=== PATIENT | female | born 1965 | race Caucasian/White ===

== ENCOUNTER 2023-04-21 08:13 | Emergency (ER) | payer BC, SELFPAY ==
[2023-04-21 08:30] VITALS: BP 140/69; PULSE 103; RESP 22; TEMP 37.8; O2SAT 95; BMI 29.6
[2023-04-21 08:48] LABS: UTC Influenza A Antigen Negative (Negative); UTC Strep Screen (Rapid) Positive (Negative)
[2023-04-21 08:49] LABS: UTC Influenza B Antigen Negative (Negative)
--- NOTE | 2023-04-21 08:49 | ED_ITS ---
Discharge Plan Disposition Patient Disposition: Home, Self-Care Condition: Good Prescriptions Prescriptions: New fluconazole 150 mg tablet 150 mg PO ONCE Qty: 1 5RF amoxicillin [amoxicillin] 875 mg tablet 875 mg PO Q12H Qty: 20 0RF benzonatate [benzonatate] 100 mg capsule 100 mg PO TIDP PRN (Reason: Cough) Qty: 30 0RF prednisone 10 mg tablet 10 mg PO BID 5 Days Qty: 10 0RF No Action levothyroxine 50 mcg tablet 50 mcg PO DAILY Patient Comments: TAKE 1 TABLET BY MOUTH ONCE DAILY pantoprazole [Protonix] 40 mg Tablet,Delayed Release (Dr/Ec) 40 mg PO DAILY aspirin 81 mg Capsule 81 mg PO DAILY Referrals Follow up/Referrals: Jamal Mercado MD [Primary Care Provider] - See instructions Activity Restrictions/Add. Instructions Additional Instructions/Restrictions: Drink plenty of fluids. Take tylenol or ibuprofen for pain or fever. Take the medications as directed. Follow up with your regular doctor. GO TO THE ER FOR ANY WORSENING SYMPTOMS Clinical Impressions Clinical Impression: Strep throat Stand Alone Forms Stand Alone Forms: Work/School Release Instructions Patient Instructions: Strep Throat, DI for Strep Throat Discharge ED Provider: Tera Shields [facility] General Stated complaint: Cough, fever, aching, headache Time Seen by Provider: 04/21/23 09:07 History of Present Illness Provider Complaint: She states that for the past 4 days she has had worsening sore throat, chills, and malaise. Related Data Home Medications Medication Instructions Recorded Confirmed aspirin 81 mg capsule 81 mg PO DAILY 04/21/23 04/21/23 levothyroxine 50 mcg tablet 50 mcg PO DAILY 04/21/23 04/21/23 pantoprazole 40 mg tablet,delayed 40 mg PO DAILY 04/21/23 04/21/23 release (Protonix) Previous Rx's Medication Instructions Recorded amoxicillin 875 mg tablet 875 mg PO Q12H #20 tabs 04/21/23 benzonatate 100 mg capsule 100 mg PO TIDP PRN Cough #30 caps 04/21/23 fluconazole 150 mg tablet 150 mg PO ONCE 1 dose #1 tab 04/21/23 prednisone 10 mg tablet 10 mg PO BID 5 days #10 tabs 04/21/23 Allergies Allergy/AdvReac Type Severity Reaction Status Date / Time No Known Allergies Allergy Verified 04/21/23 08:57 [facility] Disclaimer: The information contained in this section may have been updated after the gonzalez ent was seen, as this information can be updated by other users. Medical History (Updated 04/21/23 @ 09:01 by Tera Shields APRN) No significant past medical history Social History Smoking Status: Never smoker alcohol intake: never current occupational status: employed Travel in the last 8 weeks: None ROS Obtained: Yes All systems reviewed & no additional complaints except as documented Constitutional Constitutional: Reports chills and Reports fever(s) Eyes Eyes: Denies eye discharge ENT Ears, Nose, Mouth, and Throat: Reports as per HPI Cardiovascular Cardiovascular: Denies chest pain Respiratory Respiratory: Denies chest congestion and Reports cough Gastrointestinal Gastrointestingal: Reports nausea; Denies abdominal pain, constipation, cramping, diarrhea or vomiting Musculoskeletal Musculoskeletal: Denies arthralgias Integumentary/Breasts Skin/Breast: Denies rash Neurologic Neurologic: Denies paresthesias Physical Exam General General appearance: alert and in no apparent distress Head Head exam: atraumatic, normocephalic and normal inspection Eye Eye exam: Present normal appearance, PERRL and EOMI ENT ENT exam: Present mucous membranes moist and normal external ear exam Expanded ENT Exam TM/Canal exam: Bilateral TM: erythema and bulging Nose exam: Absent sinus tenderness Mouth exam: Present normal external inspection; Absent drooling Teeth exam: Present normal inspection Throat exam: Present tonsillar erythema, tonsillomegaly and tonsillar exudate Neck Neck exam: Present normal inspection, full ROM and trachea midline; Absent tenderness, meningismus or lymphadenopathy Chest Chest inspection: Present normal inspection and symmetric chest wall rise; Absent tenderness Respiratory Respiratory exam: Present normal lung sounds bilaterally; Absent respiratory distress, wheezes or stridor Cardiovascular Cardiovascular exam: Present regular rate and normal rhythm; Absent systolic murmur or diastolic murmur Abdominal Exam Abdominal exam: Present soft and normal bowel sounds; Absent distention, tenderness, guarding, rebound or rigidity Extremities Exam Extremities exam: Present normal inspection and normal capillary refill; Absent calf tenderness Back Exam Back exam: Present normal inspection and full ROM; Absent tenderness, CVA tenderness (R) or CVA tenderness (L) Neurological Exam Neurological exam: Present alert, oriented X3 and CN II-XII intact Psychiatric Psychiatric exam: Present normal affect and normal mood Skin Skin exam: Present warm, dry, intact and normal color Medical Decision Making Medical Records Medical records reviewed: No I reviewed the patient's medical records. Kulwinder Inquiry Pt receiving controlled substance: No Lab Data Lab results reviewed: Yes I reviewed the patient's lab results. Lab Results 04/21/23 08:38: Influenza Type A Ag Negative, Influenza Type B Ag Negative, Strep Scn Rapid Clinic Positive A
[2023-04-21 09:05] VITALS: BP 140/69; PULSE 103; RESP 22; TEMP 37.8; O2SAT 95
== END 2023-04-21 09:07 | disposition home or self-care (01) ==
PROVIDERS: Emergency Provider Nurse Practitioner Family; PCP Internal Medicine Adolescent Medicine
DX: J02.0 Streptococcal pharyngitis (principal); R07.0 Pain in throat; R51.9 Headache, unspecified; R50.9 Fever, unspecified; R05.9 Cough, unspecified; R53.81 Other malaise
CPT/HCPCS: 87635; 87804; 87880; 99204; 99212; G0463

== ENCOUNTER 2023-08-31 10:25 | Emergency (ER) | payer BC, SELFPAY ==
--- OUTSIDE RECORDS SUMMARY | 2023-08-31 10:29 | XMS_ITS ---
Care Plan - [facility] Created on: August 31, 2023 Mariaelena Rowland : 1965 Sex: Female Author Name Unknown Address [address] [place] [address] [place] [address] Phone Organization [facility] Address [address] [place] [address] [place] [address] Phone Care Team Providers Care Taping Foreman Name Role Phone SIERRA STOCKTON, LEILA Unavailable [phone] Iftikhar Bowie MD Unavailable [phone]
--- OUTSIDE RECORDS SUMMARY | 2023-08-31 10:29 | XMS_ITS ---
Author Name Unknown Address [address] [place] [address] [place] [address] Phone Organization [facility] Address [address] [place] [address] Phone Care Team Providers Care Dock Boss Name Role Phone LEILA ESQUIVEL MD Unavailable [phone] Iftikhar Bowie MD Unavailable [phone] Reason for Referral Date Encounter Description Provider Reason for Referral 03/22/22 Post Op Iftikhar Bowie MD Referral To Physician 02/15/22 Post Op Iftikhar Bowie MD Referral To Physician 12/07/21 SECOND OPINION Iftikhar Bowie MD Referral T o Physician Problems Includes: Active, inactive, and resolved Problems All Visits Onset Date Resolved Date Provider Condition S tatus History of Joint Pain in the Left Knee 02/15/2022 Iftikhar Bowie MD Active Last Documented On 2 9:49AM ; [facility] Plan of Treatment Instructions to patient Lose weight Last Documented On 3 8:53AM ; [facility] Lose weight Last Documented On 3 8:50AM ; [facility] Lose weight Last Documented On 3 9:42AM ; [facility] Lose weight Last Documented On 2 9:56AM ; [facility] Lose weight Last Documented On 2 9:49AM ; [facility] Lose weight Last Documented On 2 9:39AM ; [facility] Assessments Includes: Assessments for all patient encounters No Assessments Recorded Instructions Includes: Instructions for all patient encounters Instructions to patient Lose weight Last Documented On 3 8:53AM ; [facility] Lose weight Last Documented On 3 8:50AM ; [facility] Lose weight Last Documented On 3 9:42AM ; [facility] Lose weight Last Documented On 2 9:56AM ; [facility] Lose weight Last Documented On 2 9:49AM ; [facility] Lose weight Last Documented On 2 9:39AM ; [facility] Medical Equipment - Implanted Devices Includes: Current and historical Devices No Medical Equipment Recorded Medications Includes: Current and historical Medications Current Medications (continue as prescribed) Pantoprazole Sodium 40 MG Or al Tablet Delayed Release 04/26/2022 Provider: LEILA ESQUIVEL MD Diagnosis: Last Documented On 3 8:50AM By Alexus Evans ; [facility] Synthroid 50 MCG Oral Tablet 04/26/2022 Provider: LEILA ESQUIVEL MD Diagnosis: Last Documented On 3 8:50AM By Alexus Evans ; [facility] Amoxicillin 875 MG Oral Tablet 04/22/2022 Provider: Carol Michael APRN Diagnosis: Last Documented On 3 8:50AM By Alexus Evans ; [facility] Fluconazole 150 MG Oral Tablet 04/22/2022 Provider: Carol Michael APRN Diagnosis: Last Documented On 3 8:50AM By Alexus Evans ; [facility] Levothyroxine Sodium 50 MCG Oral Tablet 04/20/2022 Dewayne sosa: LEILA ESQUIVEL MD Diagnosis: Last Documented On 3 8:50AM By Alexus Evans ; [facility] Pantoprazole Sodium 40 MG Or al Tablet Delayed Release 04/09/2022 Provider: LEILA ESQUIVEL MD Diagnosis: Last Documented On 3 8:50AM By Alexus Evans ; [facility] Past Medications on file Aspirin Adult Low Strength 8 1 MG Oral Tablet Delayed Release 02/01/2022 - 03/18/2022 Provider: Iftikhar Bowie MD Diagnosis: twice a day Last Documented On 2 9:11AM By Maricarmen Rosario ; [facility] Ondansetron HCl 4 MG Oral Tablet 02/01/2022 - 02/16/20 Provider: Iftikhar Bowie MD Diagnosis: 1-2 p o q 6-8h as needed for nausea Last Documented On 2 9:11AM By Maricarmen Rosario ; [facility] oxyCODONE HCl 5 MG Oral Tablet 02/01/2022 - 02/05/2022 Provider: Iftikhar Bowie MD Diagnosis: 1 po q 4h 1 tablet by mouth every [address] op pain Last Documented On 2 9:11AM By Iftikhar Bowie ; [facility] Ultram 50 MG Oral Tablet 02/01/2022 - 02/11/2022 Provi anthony: Iftikhar Bowie MD Diagnosis: 1-2 po q 4-6h PRN for breakthrough post op pain Last Documented On 2 9:11AM By Iftikhar Bowie ; [facility] Medications Administered Includes: Administered Medications in patient's chart No Administered Medications Recorded Results Includes: Results from 08/30/2022 through 08/31/2023 No Results Recorded For Specified Dates History of Present Illness History of Present Illness not supported for this document type No History of Present Illness Recorded Social History Description Last Updated No caffeine use 08/09/2022 Last Documented On 3 1:11PM ; [facility] No recent change in diet 08/09/2022 Last Documented On 3 1:11PM ; [facility] Not a current smoker. 08/09/2022 Last Documented On 3 1:11PM ; [facility] Not exercising regularly 08/09/2022 Last Documented On 3 1:11PM ; [facility] Not using alcohol 08/09/2022 Last Documented On 3 1:11PM ; [facility] Not using drugs 08/09/2022 Last Documented On 3 1:11PM ; [facility] Never drank alcohol 12/07/2021 Last Documented On 2 2:35PM ; [facility] Never smoked 12/07/2021 Last Documented On 2 2:35PM ; [facility] Never used drugs 12/07/2021 Last Documented On 2 2:35PM ; [facility] 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 Last Documented On 2 2:35PM ; [facility] Tobacco non-user 12/07/2021 Last Documented On 2 2:35PM ; [facility] Smoking Status Unknown Procedures and Surgical History Surgical History Last Updated History of Past Surgical History: 2021 Last Documented On 2 2:35PM ; [facility] Medical History Includes: Medical History in patient's chart Description Last Updated Past medical and surgical history non-co ntributory 08/09/2022 Last Documented On 3 1:11PM ; [facility] History of Heartburn / Acid Reflux 12/07 Last Documented On 2 2:35PM ; [facility] Family History Includes: Family History in patient's chart Description Last Updated Maternal grandfather's history of family history of cancer 12/07/2021 Last Documented On 2 2:35PM ; [facility] Maternal grandmother's history of family history of heart disease 12/07/2021 Last Documented On 2 2:35PM ; [facility] Maternal grandmother's history of system ic hypertension 12/07/2021 Last Documented On 2 2:35PM ; [facility] Maternal history of osteoporosis 022 Last Documented On 2 2:35PM ; [facility] Paternal history of family history of ca ncer 12/07/2021 Last Documented On 2 2:35PM ; [facility] Paternal history of systemic hypertensio n 12/07/2021 Last Documented On 2 2:35PM ; [facility] Review of Systems Review of Systems not supported for this document type No Review of Systems Recorded Mental Status Description No anxiety Functional Status No Functional Status Recorded Physical Exam Physical Exam not supported for this document type No Physical Exam Recorded Allergies Includes: Active, inactive, and resolved Allergies No Known Allergies Insurance Includes: Active Insurance Policies Plan Name Member ID Group # Subscriber Relationship Effect surinder Dates 1 - [facility] [id number] DESOUZA 04/10/2021 - Unknown Clinical Notes Includes: Signed Clinical Notes starting from 03/24/2022 No Clinical Notes Recorded
--- OUTSIDE RECORDS SUMMARY | 2023-08-31 10:30 | XMS_ITS | Clinical Summary ---
Author Name Unknown Address [address] [place] [address] [place] [address] Phone Organization [facility] Address [address] [place] [address] Phone Care Team Providers Care Sprue Knocker Name Role Phone LEILA ESQUIVEL MD Unavailable [phone] Jamir STOCKTON, Iftikhar Unavailable [phone] Reason for Visit and Chief Complaint The Chief Complaint is: lt knee pain Problems Includes: Problems addressed during this encounter and other active Problems All Visits Onset Date Resolved Date Provider Condition S tatus History of Joint Pain in the Left Knee 02/15/2022 Iftikhar Bowie MD Active Last Documented On 2 9:49AM ; [facility] Plan of Treatment Mariaelena is doing very well following a prior steroid injection. She can continue to work as tolerated with no formal restrictions. We will follow up with her on an as needed basis. She knows to contact our office if her symptoms return or worsen. - Last Documented On 08/09/2022 1:11PM ; [facility] Instructions to patient Lose weight Last Documented On 3 8:53AM ; [facility] Assessments Includes: Assessments from this encounter No Assessments Recorded Instructions Includes: Instructions from this encounter Instructions to patient Lose weight Last Documented On 3 8:53AM ; [facility] Medical Equipment - Implanted Devices Includes: Current Devices No Medical Equipment Recorded Medications Includes: Medications discussed during this encounter and other current Medications Current Medications (continue as prescribed) Pantoprazole Sodium 40 MG Or al Tablet Delayed Release 04/26/2022 Provider: LEILA ESQUIVEL MD Diagnosis: Last Documented On 3 8:50AM By Alexus [facility] Synthroid 50 MCG Oral Tablet 04/26/2022 Provider: LEILA ESQUIVEL MD Diagnosis: Last Documented On 3 8:50AM By Alexus Evans ; [facility] Amoxicillin 875 MG Oral Tablet 04/22/2022 Provider: Carol Michael APRN Diagnosis: Last Documented On 3 8:50AM By Alexus Evans ; [facility] Fluconazole 150 MG Oral Tablet 04/22/2022 Provider: Carol Michael APRN Diagnosis: Last Documented On 3 8:50AM By Alexus Evans ; [facility] Levothyroxine Sodium 50 MCG Oral Tablet 04/20/2022 Dewayne alcocerder: LEILA ESQUIVEL MD Diagnosis: Last Documented On 3 8:50AM By Alexus Evans ; [facility] Pantoprazole Sodium 40 MG Or al Tablet Delayed Release 04/09/2022 Provider: LEILA ESQUIVEL MD Diagnosis: Last Documented On 3 8:50AM By Alexus Evans ; [facility] Past Medications on file Aspirin Adult Low Strength 8 1 MG Oral Tablet Delayed Release 02/01/2022 - 03/18/2022 Provider: Iftikhar Bowie MD Diagnosis: twice a day Last Documented On 2 9:11AM By Maricarmen Rosario ; [facility] Ondansetron HCl 4 MG Oral Tablet 02/01/2022 - 02/16/20 Provider: Iftikhar Bowie MD Diagnosis: 1-2 p o q 6-8h as needed for nausea Last Documented On 2 9:11AM By Maricarmen Rosario ; [facility] oxyCODONE HCl 5 MG Oral Tablet 02/01/2022 - 02/05/2022 Provider: Iftikhar Bowie MD Diagnosis: 1 po q 4h 1 tablet by mouth every [address] op pain Last Documented On 2 9:11AM By Iftikhar Bowie ; [facility] Ultram 50 MG Oral Tablet 02/01/2022 - 02/11/2022 Provi anthony: Iftikhar Bowie MD Diagnosis: 1-2 po q 4-6h PRN for breakthrough post op pain Last Documented On 2 9:11AM By Iftikhar Bowie ; [facility] Medications Administered Includes: Administered Medications from this encounter No Administered Medications Recorded Vital Signs Includes: Vital Signs from this encounter Vital Name 08/02/2022 08:53A Height (in) 65 Weight (lb) 165 Body Mass Index 27.5 Body Surface Area 1.8 Note: mg Last Documented: On 08/02/2022 8:53AM ; [facility] Results Includes: Results discussed during this encounter No Results Recorded For Specified Dates History of Present Illness Includes: History of Present Illness from this encounter HPI Mariaelena Dia is a 56 year old female. - Allergy list reviewed - Problem list reviewed - Medication list reviewed 56-year-old female returns in follow up of her left knee. She reports that her pain has nearly resolved following a prior steroid injection. She is able to function well while working without difficulty. Social History Description Last Updated No caffeine use 08/09/2022 Last Documented On 3 1:11PM ; [facility] No recent change in diet 08/09/2022 Last Documented On 3 1:11PM ; [facility] Not a current smoker. 08/09/2022 Last Documented On 3 1:11PM ; [facility] Not exercising regularly 08/09/2022 Last Documented On 3 1:11PM ; [facility] Not using alcohol 08/09/2022 Last Documented On 3 1:11PM ; [facility] Not using drugs 08/09/2022 Last Documented On 3 1:11PM ; [facility] Never drank alcohol 12/07/2021 Last Documented On 3 8:53AM ; [facility] Never smoked 12/07/2021 Last Documented On 3 8:53AM ; [facility] Never used drugs 12/07/2021 Last Documented On 3 8:53AM ; [facility] 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 Last Documented On 3 8:53AM ; [facility] Tobacco non-user 12/07/2021 Last Documented On 3 8:53AM ; [facility] Smoking Status Unknown Procedures and Surgical History Includes: Procedures from this encounter Procedures Code Diagnosis Performing Provider Service L ocation Service Date use of tobacco assessment performed 1000F Last Documented On 3 8:53AM ; [facility] Surgical History Last Updated History of Past Surgical History: 2021 Last Documented On 3 8:53AM ; [facility] Medical History Includes: Medical History addressed during this encounter Description Last Updated Past medical and surgical history non-co ntributory 08/09/2022 Last Documented On 3 1:11PM ; [facility] History of Heartburn / Acid Reflux 12/07 Last Documented On 3 8:53AM ; [facility] Family History Includes: Family History addressed during this encounter Description Last Updated Maternal grandfather's history of family history of cancer 12/07/2021 Last Documented On 3 8:53AM ; [facility] Maternal grandmother's history of family history of heart disease 12/07/2021 Last Documented On 3 8:53AM ; [facility] Maternal grandmother's history of system ic hypertension 12/07/2021 Last Documented On 3 8:53AM ; [facility] Maternal history of osteoporosis 022 Last Documented On 3 8:53AM ; [facility] Paternal history of family history of ca ncer 12/07/2021 Last Documented On 3 8:53AM ; [facility] Paternal history of systemic hypertensio n 12/07/2021 Last Documented On 3 8:53AM ; [facility] Review of Systems Includes: Review of Systems from this encounter Systemic: No symptoms, not feeling tired, no recent weight loss, and no recent weight gain. Head: No headache and no sinus pain. Eyes: No vision problems, no Cataracts, no Glasses/Contacts, and no Glaucoma. Otolaryngeal: No hearing loss and no tinnitus. Cardiovascular: No chest pain or discomfort, no palpitations, no Hypertension, and no High Cholesterol. Pulmonary: No daytime asthma symptoms and no chronic cough. No wheezing. Gastrointestinal: No heartburn and no abdominal pain. No Indigestion, no Acid Reflux, no Peptic Ulcer, no GI Stomach Bleed, and no Ulcers. Endocrine: No hot flashes, no muscle weakness, no Diabetes, no Hypothyroid, and no Hyperthyroid. Hematologic: No easy bleeding, no tendency for easy bruising, and no Anemia. Musculoskeletal: Musculoskeletal symptoms Pain in my feet. No Arthritis and no lower back pain. No soft tissue swelling and no localized joint pain. Neurological: No dizziness, no convulsions, and no numbness. Psychological: No anxiety, no emotional lability, no depression, and no insomnia. Not crying for no reason. Skin: No dry skin. No Ulcers, no Scars, and no rash. Allergic and Immunologic: No complaint of seasonal allergic reaction. Mental Status Includes: Mental Status from this encounter Description No anxiety Functional Status Includes: Functional Status from this encounter No Functional Status Recorded Physical Exam Includes: Physical Exam from this encounter Allergies Includes: Active Allergies No Known Allergies Encounters Encounter Provider Location Date Check-In Time Check- Out Time Diagnosis Follow Up Iftikhar oBwie MD [facility] 3 8:50AM 9:19AM Insurance Includes: Active Insurance Policies Plan Name Member ID Group # Subscriber Relationship Effect surinder Dates 1 - [facility] [id number] DESOUZA 04/10/2021 - Unknown Clinical Notes Includes: Clinical Notes from this encounter * Progress note Date Encounter Last Documented by 08/02/2022 Follow Up Last documented on 08/09/2022; 1:11 PM, Iftikhar Bowie MD; [facility] Active Problems & Conditions - History of Joint Pain in the Left Knee Chief Complaint The Chief Complaint is: Lt knee pain. Referred Here Referred by. History of Present Illness Mariaelena Dia is a 56 year old female. - Allergy list reviewed - Problem list reviewed - Medication list reviewed 56-year-old female returns in follow up of her left knee. She reports that her pain has nearly resolved following a prior steroid injection. She is able to function well while working without difficulty. Current Medication - Amoxicillin 875 MG Oral Tablet 10 days, 0 refills - Fluconazole 150 MG Oral Tablet 3 days, 0 refills - Levothyroxine Sodium 50 MCG Oral Tablet 90 days, 0 refills - Pantoprazole Sodium 40 MG Oral Tablet Delayed Release 90 days, 0 refills - Pantoprazole Sodium 40 MG Oral Tablet Delayed Release 30 days, 0 refills - Synthroid 50 MCG Oral Tablet 90 days, 0 refills Past Medical/Surgical History Diagnoses: Heartburn / Acid Reflux Past medical and surgical history non-contributory. Surgical: - Past Surgical History: Social History Not a current smoker. Current diet: No recent change in diet. Caffeine use: No caffeine use. Tobacco use: Tobacco non-user. Never smoked. Alcohol: Not using alcohol. Never drank alcohol. Drug Use: Not using drugs. Never used drugs. Habits: Not exercising regularly. 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 Allergies - No Known Allergies Family History Paternal: Cancer Systemic hypertension Maternal: Osteoporosis Maternal grandfather's: Cancer Maternal grandmother's: Heart disease Systemic hypertension Review Of Systems Systemic: No symptoms, not feeling tired, no recent weight loss, and no recent weight gain. Head: No headache and no sinus pain. Eyes: No vision problems, no Cataracts, no Glasses/Contacts, and no Glaucoma. Otolaryngeal: No hearing loss and no tinnitus. Cardiovascular: No chest pain or discomfort, no palpitations, no Hypertension, and no High Cholesterol. Pulmonary: No daytime asthma symptoms and no chronic cough. No wheezing. Gastrointestinal: No heartburn and no abdominal pain. No Indigestion, no Acid Reflux, no Peptic Ulcer, no GI Stomach Bleed, and no Ulcers. Endocrine: No hot flashes, no muscle weakness, no Diabetes, no Hypothyroid, and no Hyperthyroid. Hematologic: No easy bleeding, no tendency for easy bruising, and no Anemia. Musculoskeletal: Musculoskeletal symptoms Pain in my feet. No Arthritis and no lower back pain. No soft tissue swelling and no localized joint pain. Neurological: No dizziness, no convulsions, and no numbness. Psychological: No anxiety, no emotional lability, no depression, and no insomnia. Not crying for no reason. Skin: No dry skin. No Ulcers, no Scars, and no rash. Allergic and Immunologic: No complaint of seasonal allergic reaction. Physical Findings - Vitals taken 08/02/2022 08:53 am mg Height 65 in 48 - 78 Weight 165 lbs 98 - 183 Body Mass Index 27.5 kg/m2 Body Surface Area 1.8 m2 Standard Measurements: - Patient was overweight. LEFT KNEE EXAM: Full range of motion No significant pain Normal stability Resolved tenderness over the pes bursa Counseling/Education - Lose weight Plan Mariaelena is doing very well following a prior steroid injection. She can continue to work as tolerated with no formal restrictions. We will follow up with her on an as needed basis. She knows to contact our office if her symptoms return or worsen. Notes Transcribed by Morales Ch, acting as a scribe for Dr. Bowie. This dictation was done with voice recognition software and may contain errors and omissions. Practice Management Use of tobacco assessment performed. Care Team - LEILA ESQUIVEL MD - STAVE SAW OPERATOR
--- OUTSIDE RECORDS SUMMARY | 2023-08-31 10:30 | XMS_ITS | Clinical Summary ---
Author Name Unknown Address [address] [place] [address] [place] [address] Phone Organization [facility] Address [address] [place] [address] Phone Care Team Providers Care County Records Management Officer Name Role Phone LEILA ESQUIVEL MD Unavailable [phone] Iftikhar Bowie MD Unavailable [phone] Reason for Visit and Chief Complaint [Patient Encounter] Problems Includes: Problems addressed during this encounter and other active Problems All Visits Onset Date Resolved Date Provider Condition S tatus History of Joint Pain in the Left Knee 02/15/2022 Iftikhar Bowie MD Active Last Documented On 2 9:49AM ; [facility] Plan of Treatment No Plan of Treatment Recorded Assessments Includes: Assessments from this encounter No Assessments Recorded Medical Equipment - Implanted Devices Includes: Current Devices No Medical Equipment Recorded Medications Includes: Medications discussed during this encounter and other current Medications Current Medications (continue as prescribed) Pantoprazole Sodium 40 MG Or al Tablet Delayed Release 04/26/2022 Provider: LEILA ESQUIVEL MD Diagnosis: Last Documented On 3 8:50AM By Alexus [facility], [facility] Synthroid 50 MCG Oral Tablet 04/26/2022 Provider: LEILA ESQUIVEL MD Diagnosis: Last Documented On 3 8:50AM By Alexus [facility], [facility] Amoxicillin 875 MG Oral Tablet 04/22/2022 Provider: Carol Michael APRN Diagnosis: Last Documented On 3 8:50AM By Alexus [facility], [facility] Fluconazole 150 MG Oral Tablet 04/22/2022 Provider: Carol Michael APRN Diagnosis: Last Documented On 3 8:50AM By Alexus Evans ; [facility] Levothyroxine Sodium 50 MCG Oral Tablet 04/20/2022 Dewayne sosa: LEILA ESQUIVEL MD Diagnosis: Last Documented On 3 8:50AM By Alexus Evans ; [facility] Pantoprazole Sodium 40 MG Or al Tablet Delayed Release 04/09/2022 Provider: LEILA ESQUIVEL MD Diagnosis: Last Documented On 3 8:50AM By Alexus Evans ; [facility], [facility] Medications Administered Includes: Administered Medications from this encounter No Administered Medications Recorded Results Includes: Results discussed during this encounter No Results Recorded For Specified Dates History of Present Illness Includes: History of Present Illness from this encounter No History of Present Illness Recorded Social History No Social History Recorded - Smoking Status Unknown Medical History Includes: Medical History addressed during this encounter No Medical History Recorded Family History Includes: Family History addressed during this encounter No Family History Recorded Review of Systems Includes: Review of Systems from this encounter No Review of Systems Recorded Mental Status Includes: Mental Status from this encounter No Mental Status Recorded Functional Status Includes: Functional Status from this encounter No Functional Status Recorded Physical Exam Includes: Physical Exam from this encounter No Physical Exam Recorded Allergies Includes: Active Allergies No Known Allergies Encounters Encounter Provider Location Date Check-In Time Check-Out Time Diagnosis [Patient Encounter] Iftikhar Bowie MD 04/21/2022 3:23PM 11:59PM Insurance Includes: Active Insurance Policies Plan Name Member ID Group # Subscriber Relationship Effect surinder Dates 1 - [facility] [id number] DEOSUZA 04/10/2021 - Unknown Clinical Notes Includes: Clinical Notes from this encounter No Clinical Notes Recorded
--- OUTSIDE RECORDS SUMMARY | 2023-08-31 10:30 | XMS_ITS | Clinical Summary ---
Author Name Unknown Address [address] [place] [address] [place] [address] Phone Organization [facility] Address [address] [place] [address] Phone Care Team Providers Care Divinity Teacher Name Role Phone LEILA ESQUIVEL MD Unavailable [phone] Iftikhar Bowie MD Unavailable [phone] Reason for Visit and Chief Complaint [Patient Encounter] Problems Includes: Problems addressed during this encounter and other active Problems All Visits Onset Date Resolved Date Provider Condition S tatus History of Joint Pain in the Left Knee 02/15/2022 Iftikhar Bowie MD Active Last Documented On 2 9:49AM ; [facility] Plan of Treatment No Plan of [...] Documented On 3 8:50AM By Alexus MARSS, [facility] Synthroid 50 MCG Oral Tablet 04/26/2022 Provider: LEILA ESQUIVEL MD Diagnosis: Last Documented On 3 8:50AM By Alexus MARSS, [facility] Amoxicillin 875 MG Oral Tablet 04/22/2022 Provider: Carol Michael APRN Diagnosis: Last Documented On 3 8:50AM By Alexus MARSS, [facility] Fluconazole 150 MG Oral Tablet 04/22/2022 Provider: Carol Michael APRN Diagnosis: Last Documented On 3 8:50AM By Alexus Evans ; [facility] Levothyroxine Sodium 50 MCG Oral Tablet 04/20/2022 Dewayne sosa: LEILA ESQUIVEL MD Diagnosis: Last Documented On 3 8:50AM By Alexus Evans ; [facility], [facility] Pantoprazole Sodium 40 MG Or al Tablet Delayed Release 04/09/2022 Provider: LEILA ESQUIVEL MD Diagnosis: Last Documented On 3 8:50AM By Alexus Evans ; [facility], [facility] Medications Administered Includes: Administered Medications from [...] Time Diagnosis [Patient Encounter] Iftikhar Bowie MD 04/14/2022 11:01AM 11:59PM Insurance Includes: Active Insurance Policies Plan Name Member ID Group # Subscriber Relationship Effect surinder Dates 1 - [facility] [id number] DESOUZA 04/10/2021 - Unknown Clinical Notes Includes: Clinical Notes from this encounter No Clinical Notes Recorded
--- OUTSIDE RECORDS SUMMARY | 2023-08-31 10:30 | XMS_ITS | Clinical Summary ---
Author Name Unknown Address [address] [place] [address] [place] [address] Phone Organization [facility] , [facility] Address [address] [place] [address] Phone Care Team Providers Care Geotechnical Department Manager Name Role Phone SIERRA STOCKTON, LEILA Unavailable [phone] Jamir STOCKTON, Iftikhar Unavailable [phone] Reason for Visit and Chief Complaint The Chief Complaint is: lt knee pain Problems Includes: Problems addressed during this encounter and other active Problems All Visits Onset Date Resolved Date Provider Condition S tatus History of Joint Pain in the Left Knee 02/15/2022 Iftikhar Bowie MD Active Last Documented On 2 9:49AM ; [facility], [facility] Plan of Treatment We discussed treatment options injection performed in the pes bursa 1 cc Celestone injected aseptically if she is not improving in 3 to 5 days then we will add some therapeutic laser treatments as well for total of 6-8 treatments to help with soft tissue inflammation we will contact her about that and see how she is doing and then otherwise see her back in 6 weeks continue work without restrictions as previous - Last Documented On 06/28/2022 9:02AM ; [facility], [facility] Instructions to patient Lose weight Last Documented On 3 8:50AM ; [facility], [facility] Assessments Includes: Assessments from this encounter Findings Pes bursitis left knee post meniscal root repair now 5 months postop - Last Documented On 06/28/2022 9:02AM ; [facility], [facility] Instructions Includes: Instructions from this encounter Instructions to patient Lose weight Last Documented On 3 8:50AM ; [facility], [facility] Medical Equipment - Implanted Devices Includes: Current Devices No Medical Equipment Recorded Medications Includes: Medications discussed during this encounter and other current Medications Current Medications (continue as prescribed) Pantoprazole Sodium 40 MG Or al Tablet Delayed Release 04/26/2022 Provider: LEILA ESQUIVEL MD Diagnosis: Last Documented On 3 8:50AM By Alexus Evans ; [facility], [facility] Synthroid 50 MCG Oral Tablet 04/26/2022 Provider: LEILA ESQUIVEL MD Diagnosis: Last Documented On 3 8:50AM By Alexus Evans ; [facility], [facility] Amoxicillin 875 MG Oral Tablet 04/22/2022 Provider: Carol Michael APRN Diagnosis: Last Documented On 3 8:50AM By Alexus Evans ; [facility], [facility] Fluconazole 150 MG Oral Tablet 04/22/2022 Provider: Carol Michael APRN Diagnosis: Last Documented On 3 8:50AM By Alexus Evans ; [facility], [facility] Levothyroxine Sodium 50 MCG Oral Tablet 04/20/2022 Dewayne alcocerder: LEILA ESQUIVEL MD Diagnosis: Last Documented On 3 8:50AM By Alexus Evans ; [facility], [facility] Pantoprazole Sodium 40 MG Or al Tablet Delayed Release 04/09/2022 Provider: LEILA ESQUIVEL MD Diagnosis: Last Documented On 3 8:50AM By Alexus Evans ; [facility], [facility] Past Medications on file Aspirin Adult Low Strength 8 1 MG Oral Tablet Delayed Release 02/01/2022 - 03/18/2022 Provider: Iftikhar Bowie MD Diagnosis: twice a day Last Documented On 2 9:11AM By Maricarmen Rosario ; [facility], [facility] Ondansetron HCl 4 MG Oral Tablet 02/01/2022 - 02/16/20 Provider: Iftikhar Bowie MD Diagnosis: 1-2 p o q 6-8h as needed for nausea Last Documented On 2 9:11AM By Maricarmen Rosario ; [facility], [facility] oxyCODONE HCl 5 MG Oral Tablet 02/01/2022 - 02/05/2022 Provider: Iftikhar Bowie MD Diagnosis: 1 po q 4h 1 tablet by mouth every [address] op pain Last Documented On 2 9:11AM By Iftikhar Bowie ; [facility] Ultram 50 MG Oral Tablet 02/01/2022 - 02/11/2022 Provi anthony: Iftikhar Bowie MD Diagnosis: 1-2 po q 4-6h PRN for breakthrough post op pain Last Documented On 2 9:11AM By Iftikhar Bowie ; [facility] Medications Administered Includes: Administered Medications from this encounter No Administered Medications Recorded Vital Signs Includes: Vital Signs from this encounter Vital Name 06/28/2022 08:50A Height (in) 65 Weight (lb) 165 Body Mass Index 27.5 Body Surface Area 1.8 Note: mg Last Documented: On 06/28/2022 8:50AM ; [facility] Results Includes: Results discussed during this encounter No Results Recorded For Specified Dates History of Present Illness Includes: History of Present Illness from this encounter ROBIN Dia is a 56 year old female. - Allergy list reviewed - Problem list reviewed - Medication list reviewed Follow-up left knee she is doing well overall function well at her job she still some soreness over the pes bursa this is in the same area where the tunnel was for the meniscal root repair and think she had low postop bursitis which is not improving with [id number] medications Social History Description Last Updated Never drank alcohol 12/07/2021 Last Documented On 3 8:50AM ; [facility] Never smoked 12/07/2021 Last Documented On 3 8:50AM ; [facility] Never used drugs 12/07/2021 Last Documented On 3 8:50AM ; [facility] 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 Last Documented On 3 8:50AM ; [facility], [facility] Tobacco non-user 12/07/2021 Last Documented On 3 8:50AM ; [facility] Smoking Status Unknown Procedures and Surgical History Includes: Procedures from this encounter Procedures Code Diagnosis Performing Provider Service L ocation Service Date use of tobacco assessment performed 1000F Last Documented On 3 8:50AM ; [facility] Surgical History Last Updated History of Past Surgical History: 2021 Last Documented On 3 8:50AM ; [facility] Medical History Includes: Medical History addressed during this encounter Description Last Updated History of Heartburn / Acid Reflux 12/07 Last Documented On 3 8:50AM ; [facility], [facility] Family History Includes: Family History addressed during this encounter Description Last Updated Maternal grandfather's history of family history of cancer 12/07/2021 Last Documented On 3 8:50AM ; [facility], [facility] Maternal grandmother's history of family history of heart disease 12/07/2021 Last Documented On 3 8:50AM ; [facility] Maternal grandmother's history of system ic hypertension 12/07/2021 Last Documented On 3 8:50AM ; [facility], [facility] Maternal history of osteoporosis 022 Last Documented On 3 8:50AM ; [facility], [facility] Paternal history of family history of ca ncer 12/07/2021 Last Documented On 3 8:50AM ; [facility], [facility] Paternal history of systemic hypertensio n 12/07/2021 Last Documented On 3 8:50AM ; [facility], [facility] Review of Systems Includes: Review of Systems from this encounter Systemic: No symptoms. Musculoskeletal: Musculoskeletal symptoms Pain in my feet. Mental Status Includes: Mental Status from this encounter No Mental Status Recorded Functional Status Includes: Functional Status from this encounter No Functional Status Recorded Physical Exam Includes: Physical Exam from this encounter Allergies Includes: Active Allergies No Known Allergies Encounters Encounter Provider Location Date Check-In Time Check- Out Time Diagnosis Follow Up Iftikhar Bowie MD [facility] 3 8:49AM 9:05AM Insurance Includes: Active Insurance Policies Plan Name Member ID Group # Subscriber Relationship Effect surinder Dates 1 - [facility] [id number] RACQUEL DIA 04/10/2021 - Unknown Clinical Notes Includes: Clinical Notes from this encounter * Progress note Date Encounter Last Documented by 06/28/2022 Follow Up Last documented on 06/28/2022; 9:02 AM, Iftikhar Bowie MD; [facility], [facility] Active Problems & Conditions - History of Joint Pain in the Left Knee Chief Complaint The Chief Complaint is: Lt knee pain. Referred Here Referred by. History of Present Illness Mariaelena Dia is a 56 year old female. - Allergy list reviewed - Problem list reviewed - Medication list reviewed Follow-up left knee she is doing well overall function well at her job she still some soreness over the pes bursa this is in the same area where the tunnel was for the meniscal root repair and think she had low postop bursitis which is not improving with [id number] medications Current Medication - Amoxicillin 875 MG Oral [...] Medical/Surgical History Diagnoses: Heartburn / Acid Reflux Surgical: - Past Surgical History: Social History Tobacco use: Tobacco non-user. Never smoked. Alcohol: Never drank alcohol. Drug Use: Never used drugs. 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 Allergies - No Known Allergies Family History Paternal: Cancer Systemic hypertension Maternal: Osteoporosis Maternal grandfather's: Cancer Maternal grandmother's: Heart disease Systemic hypertension Review Of Systems Systemic: No symptoms. Musculoskeletal: Musculoskeletal symptoms Pain in my feet. Physical Findings - Vitals taken 06/28/2022 08:50 am mg Height 65 in 48 - 78 Weight 165 lbs 98 - 183 Body Mass Index 27.5 kg/m2 Body Surface Area 1.8 m2 Left knee shows full motion normal stability no meniscal click is noted no effusion there is a tenderness over the pes bursa Assessment Pes bursitis left knee post meniscal root repair now 5 months postop Counseling/Education - Lose weight Plan We discussed treatment options injection performed in the pes bursa 1 cc Celestone injected aseptically if she is not improving in 3 to 5 days then we will add some therapeutic laser treatments as well for total of 6-8 treatments to help with soft tissue inflammation we will contact her about that and see how she is doing and then otherwise see her back in 6 weeks continue work without restrictions as previous Notes This dictation was done with voice recognition software and may contain errors and omissions. Practice Management Use of tobacco assessment performed. Care Team - LEILA ESQUIVEL MD - PUBLICATIONS WRITER
--- OUTSIDE RECORDS SUMMARY | 2023-08-31 10:30 | XMS_ITS | Clinical Summary ---
Author Name Unknown Address [address] [place] [address] [place] [address] Phone Organization [facility] , [facility] Address [address] [place] [address] Phone Care Team Providers Care Roller Man Name Role Phone LEILA ESQUIVEL MD Unavailable [phone] Jamir STOCKTON, Iftikhar Unavailable [phone] Reason for Visit and Chief Complaint The Chief Complaint is: lt knee pain Problems Includes: Problems addressed during this encounter and other active Problems All Visits Onset Date Resolved Date Provider Condition S tatus History of Joint Pain in the Left Knee 02/15/2022 Iftikhar Bowie MD Active Last Documented On 2 9:49AM ; [facility] Plan of Treatment Patient was seen by myself and Dr. Bowie. Derrick Rivers PA-C Patient will follow- up in 2 months. - Last Documented On 07/04/2023 11:35AM ; [facility] Instructions to patient Lose weight Last Documented On 3 9:42AM ; [facility] Assessments Includes: Assessments from this encounter Findings Left knee scope medial meniscus root repair February 01, 2022 - Last Documented On 07/04/2023 11:35AM ; [facility] Instructions Includes: Instructions from this encounter Instructions to patient Lose weight Last Documented On 3 9:42AM ; [facility] Medical Equipment - Implanted Devices Includes: Current Devices No Medical Equipment Recorded Medications Includes: Medications discussed during this encounter and other current Medications Current Medications (continue as prescribed) Pantoprazole Sodium 40 MG Or al Tablet Delayed Release 04/26/2022 Provider: LEILA ESQUIVEL MD Diagnosis: Last Documented On 3 8:50AM By Alexus Evans ; [facility], [facility] Synthroid 50 MCG Oral Tablet 04/26/2022 Provider: LEILA ESQUIVEL MD Diagnosis: Last Documented On 3 8:50AM By Alexus Evans ; [facility], [facility] Amoxicillin 875 MG Oral Tablet 04/22/2022 Provider: Carol Michael APRN Diagnosis: Last Documented On 3 8:50AM By Alexus Evans ; [facility], [facility] Fluconazole 150 MG Oral Tablet 04/22/2022 Provider: Carol Michael APRN Diagnosis: Last Documented On 3 8:50AM By Alexus Evans ; [facility], [facility] Levothyroxine Sodium 50 MCG Oral Tablet 04/20/2022 P carlynder: LEILA ESQUIVEL MD Diagnosis: Last Documented On 3 8:50AM By Alexus Evans ; [facility], [facility] Pantoprazole Sodium 40 MG Or al Tablet Delayed Release 04/09/2022 Provider: LEILA ESQUIVEL MD Diagnosis: Last Documented On 3 8:50AM By Alexus Evans ; [facility], [facility] Past Medications on file Aspirin Adult Low Strength 8 1 MG Oral Tablet Delayed Release 02/01/2022 - 03/18/2022 Provider: Iftikhar Bowie MD Diagnosis: twice a day Last Documented On 2 9:11AM By Maricarmen Rosario ; [facility], [facility] Ondansetron HCl 4 MG Oral Tablet 02/01/2022 - 02/16/20 Provider: Iftikhar Bowie MD Diagnosis: 1-2 p o q 6-8h as needed for nausea Last Documented On 2 9:11AM By Maricarmen Rosario ; [facility], [facility] oxyCODONE HCl 5 MG Oral Tablet 02/01/2022 - 02/05/2022 Provider: Iftikhar Bowie MD Diagnosis: 1 po q 4h 1 tablet by mouth every [address] op pain Last Documented On 2 9:11AM By Iftikhar Bowie ; [facility], [facility] Ultram 50 MG Oral Tablet 02/01/2022 - 02/11/2022 Provi anthony: Iftikhar Bowie MD Diagnosis: 1-2 po q 4-6h PRN for breakthrough post op pain Last Documented On 2 9:11AM By Iftikhar Bowie ; [facility] Medications Administered Includes: Administered Medications from this encounter No Administered Medications Recorded Vital Signs Includes: Vital Signs from this encounter Vital Name 05/03/2022 09:54A Blood Pressure Sitting (mmHg) 134/86 Pulse Rate-Sitting (bpm) 80 Height (in) 65 Weight (lb) 168 Body Mass Index 28 Body Surface Area 1.8 Last Documented: On 05/03/2022 9:54AM ; [facility], [facility] Results Includes: Results discussed during this encounter No Results Recorded For Specified Dates History of Present Illness Includes: History of Present Illness from this encounter HPI Mariaelena Dia is a 56 year old female. - Allergy list reviewed - Problem list reviewed - Medication list reviewed Follow-up on her left knee scope medial meniscus root repair from February 01, 2022. 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 Surgical History Last Updated History of Past Surgical History: 2021 Last Documented On 3 9:42AM ; [facility], [facility] Medical History Includes: Medical History addressed during this encounter Description Last Updated History of Heartburn / Acid Reflux 12/07 Last Documented On 3 9:42AM ; [facility], [facility] Family History Includes: Family History addressed during this encounter Description Last Updated Maternal grandfather's history of family history of cancer 12/07/2021 Last Documented On 3 9:42AM ; [facility] Maternal grandmother's history of family history of heart disease 12/07/2021 Last Documented On 3 9:42AM ; [facility], [facility] Maternal grandmother's history of system ic hypertension 12/07/2021 Last Documented On 3 9:42AM ; [facility] Maternal history of osteoporosis 022 Last Documented On 3 9:42AM ; [facility] Paternal history of family history of ca ncer 12/07/2021 Last Documented On 3 9:42AM ; [facility] Paternal history of systemic hypertensio n 12/07/2021 Last Documented On 3 9:42AM ; [facility], [facility] Review of Systems Includes: Review of [...] Check- Out Time Diagnosis [facility] 3 9:41AM 10:13AM Insurance Includes: Active Insurance Policies Plan Name Member ID Group # Subscriber Relationship Effect surinder Dates 1 - [employer] [place] [id number] DESOUZA 04/10/2021 - Unknown Clinical Notes Includes: Clinical Notes from this encounter * Progress note Date Encounter Last Documented by 05/03/2022 Follow Up Last documented on 07/04/2023; 11:35 AM, Iftikhar Bowie MD; [facility] Active Problems & Conditions - History of Joint Pain in the Left Knee Chief Complaint The Chief Complaint is: Lt knee pain. Referred Here Referred by. History of Present Illness Mariaelena Dia is a 56 year old female. - Allergy list reviewed - Problem list reviewed - Medication list reviewed Follow-up on her left knee scope medial meniscus root repair from February 01, 2022. 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 Allergies - No Known Allergies Family History Paternal: Cancer Systemic hypertension Maternal: Osteoporosis Maternal grandfather's: Cancer Maternal grandmother's: Heart disease Systemic hypertension Review Of Systems Systemic: No symptoms. Musculoskeletal: Musculoskeletal symptoms Pain in my feet. Physical Findings - Vitals taken 05/03/2022 09:54 am BP-Sitting 134/86 mmHg 100 - 120/56 - 80 Pulse Rate-Sitting 80 bpm 50 - 100 Height 65 in 48 - 78 Weight 168 lbs 98 - 183 Body Mass Index 28 kg/m2 Body Surface Area 1.8 m2 Standard Measurements: - Patient was overweight. No significant effusion today with left knee or incision sites were healed range of motion was 0-120 walks with a normal gait Assessment Left knee scope medial meniscus root repair February 01, 2022 Counseling/Education - Lose weight Plan Patient was seen by myself and Dr. Bowie. Derrick Rivers PA-C Patient will follow- up in 2 months. Notes This dictation was done with voice recognition software and may contain errors and omissions. Practice Management Use of tobacco assessment performed. Care Team - LEILA ESQUIVEL MD - PICK UP OPERATOR
--- NOTE | 2023-08-31 10:38 | EXP.UTC ---
Discharge Plan Disposition Patient Disposition: Home, Self-Care Condition: Good Prescriptions Prescriptions: New azithromycin [Zithromax] 250 mg tablet 250 mg PO UD DOSE PK Qty: 6 0RF Rx Instructions: Take two (2) tablets today, then one (1) tablet days #2 thru #5 benzonatate 100 mg capsule 100 mg PO TIDP PRN (Reason: Cough) Qty: 30 0RF No Action multivitamin Tablet 1 tab PO DAILY levothyroxine 50 mcg tablet 50 mcg PO DAILY Patient Comments: TAKE 1 TABLET BY MOUTH ONCE DAILY Fish Oil 500 mg Capsule 500 mg PO DAILY pantoprazole [Protonix] 40 mg Tablet,Delayed Release (Dr/Ec) 40 mg PO DAILY aspirin 81 mg Capsule 81 mg PO DAILY Referrals Follow up/Referrals: Jamal Mercado MD [Primary Care Provider] - See instructions Activity Restrictions/Add. Instructions Additional Instructions/Restrictions: Drink plenty of fluids. Take tylenol or ibuprofen for pain or fever. Take the medications as directed. Follow up with your regular doctor. GO TO THE ER FOR ANY WORSENING SYMPTOMS Clinical Impressions Clinical Impression: Viral syndrome Stand Alone Forms Stand Alone Forms: Work/School Release Instructions Patient Instructions: DI for Viral Syndrome Discharge ED Provider: Tera Shields [facility] General Stated complaint: fever 103 headache body ache cough Time Seen by Provider: 08/31/23 10:38 History of Present Illness Provider Complaint: She states that for the past 2 days she has had fever, chills, body aches, cough, chest congestion, and malaise. Related Data Home Medications Medication Instructions Recorded Confirmed aspirin 81 mg capsule 81 mg PO DAILY 04/21/23 08/31/23 pantoprazole 40 mg tablet,delayed 40 mg PO DAILY 04/21/23 08/31/23 release (Protonix) levothyroxine 50 mcg tablet 50 mcg PO DAILY 08/31/23 08/31/23 multivitamin 1 tab PO DAILY 08/31/23 08/31/23 omega-3 fatty acids 500 mg capsule 500 mg PO DAILY 08/31/23 08/31/23 Previous Rx's Medication Instructions Recorded azithromycin 250 mg tablet 250 mg PO UD DOSE PK #6 tabs 08/31/23 (Zithromax) benzonatate 100 mg capsule 100 mg PO TIDP PRN Cough #30 caps 08/31/23 Allergies Allergy/AdvReac Type Severity Reaction Status Date / Time No Known Allergies Allergy Verified 04/21/23 08:57 [facility] Disclaimer: The information contained in this section may have been updated after the patient was seen, as this information can be updated by other users. Medical History (Updated 08/31/23 @ 11:25 by Tera Shields APRN) GERD (gastroesophageal reflux disease) Thyroid disease Surgical History (Updated 08/31/23 @ 10:51 by Iona Dunaway RN) History of tubal ligation Social History (Updated 04/21/23 @ 11:06 by Tera Shields APRN) Smoking Status: Never smoker alcohol intake: never current occupational status: employed Travel in the last 8 weeks: None ROS Obtained: Yes All systems reviewed & no additional complaints except as documented Constitutional Constitutional: Reports chills and Reports fever(s) Eyes Eyes: Denies eye discharge ENT Ears, Nose, Mouth, and Throat: Reports as per HPI Cardiovascular Cardiovascular: Denies chest pain Respiratory Respiratory: Denies chest congestion and Reports cough Gastrointestinal Gastrointestingal: Reports nausea; Denies abdominal pain, constipation, cramping, diarrhea or vomiting Musculoskeletal Musculoskeletal: Denies arthralgias Integumentary/Breasts Skin/Breast: Denies rash Neurologic Neurologic: Denies paresthesias Physical Exam General General appearance: alert and in no apparent distress Eye Eye exam: Present normal appearance, PERRL and EOMI ENT ENT exam: Present mucous membranes moist and normal external ear exam Expanded ENT Exam External ear exam: Present normal external inspection TM/Canal exam: Bilateral TM: erythema and bulging Nose exam: Absent sinus tenderness Nasal speculum exam: Bilateral: normal Mouth exam: Present normal external inspection; Absent drooling Teeth exam: Present normal inspection Throat exam: Present tonsillar erythema and tonsillomegaly Neck Neck exam: Present normal inspection, full ROM and trachea midline; Absent tenderness, lymphadenopathy or thyromegaly Chest Chest inspection: Present normal inspection and symmetric chest wall rise; Absent tenderness or rash Respiratory Respiratory exam: Present normal lung sounds bilaterally; Absent respiratory distress, wheezes, stridor or accessory muscle use Cardiovascular Cardiovascular exam: Present regular rate, normal rhythm and normal heart sounds Abdominal Exam Abdominal exam: Present soft; Absent distention, tenderness, guarding, rebound or rigidity Extremities Exam Extremities exam: Present normal inspection, full ROM and normal capillary refill; Absent tenderness or calf tenderness Back Exam Back exam: Present normal inspection and full ROM; Absent tenderness Neurological Exam Neurological exam: Present alert and oriented X3 Psychiatric Psychiatric exam: Present normal affect and normal mood Skin Skin exam: Present warm, dry, intact and normal color Lymphatic Lymphatic Findings: no adenopathy Medical Decision Making Medical Records Medical records reviewed: No I reviewed the patient's medical records. Kulwinder Inquiry Pt receiving controlled substance: No Lab Data Lab results reviewed: Yes I reviewed the patient's lab results.
[2023-08-31 10:40] VITALS: BP 126/84; PULSE 103; RESP 19; TEMP 37.6; O2SAT 98; BMI 30.1
[2023-08-31 11:01] LABS: UTC Strep Screen (Rapid) Negative (Negative)
[2023-08-31 11:02] LABS: UTC Influenza A Antigen Negative (Negative); UTC Influenza B Antigen Negative (Negative)
[2023-08-31 11:33] VITALS: BP 126/84; PULSE 103; RESP 19; TEMP 37.6; O2SAT 98
[2023-08-31 15:31] LABS: Adenovirus,PCR Not Detected (NotDetected); Bordetella Pertussis Not Detected (NotDetected); Chlamydophila Pneumoniae, PCR Not Detected (NotDetected); Coronavirus 229E Not Detected (NotDetected); Coronavirus NL63 Not Detected (NotDetected); Coronavirus OC43 Not Detected (NotDetected); Coronovirus HKU1,PCR Not Detected (NotDetected); Human Metapneumovirus Not Detected (NotDetected); Influenza A, PCR Not Detected (NotDetected); Influenza AH1, 2009 Not Detected (NotDetected); Influenza AH1, PCR Not Detected (NotDetected); Influenza AH3,PCR Not Detected (NotDetected); Influenza B, PCR Not Detected (NotDetected); Mycoplasma Pneumoniae, PCR Not Detected (NotDetected); Parainfluenza 1, PCR Not Detected (NotDetected); Parainfluenza 2, PCR Not Detected (NotDetected); Parainfluenza 3, PCR Not Detected (NotDetected); Parainfluenza 4, PCR Not Detected (NotDetected); Respiratory Syncytial Virus Not Detected (NotDetected); Rhinovirus/Enterovirus Not Detected (NotDetected)
[2023-08-31 16:54] LABS: Coronavirus 19, PCR Detected (NotDetected)
== END 2023-08-31 11:40 | disposition home or self-care (01) ==
PROVIDERS: Emergency Provider Nurse Practitioner Family; PCP Internal Medicine Adolescent Medicine
DX: U07.1 COVID-19 (principal); R51.9 Headache, unspecified; R50.9 Fever, unspecified; R05.9 Cough, unspecified; R09.81 Nasal congestion; M79.18 Myalgia, other site
CPT/HCPCS: 87581; 87632; 87635; 87798; 87804; 87880; 99212; 99214; G0463

== ENCOUNTER 2024-10-11 08:49 | Outpatient (CLI) | payer BC, SELFPAY ==
--- OUTSIDE RECORDS SUMMARY | 2024-09-04 07:40 | XMS_ITS | Encounter Summary ---
Author Organization Healthcare Address [address] [place] [address] Care Team Providers Care Aerodynamicist Name Role Phone Aby Aguilera SQL ETL DEVELOPER Primary Care Provider [phone] Reason for Visit * Reason Comments Stye Right eye x 3 days GERD FuPt will reschedule colonoscopy for October 2024 Encounter Details Date Type Department Care Team (Latest Contact Info) Description 09/04/2024 7:40 AM EDT Office Visit [facility] [address] [place] [address] Aby Aguilera, SQL ETL DEVELOPER [address] [place] [address] Other specified hypothyroidism (Primary Dx); Gastroesophageal reflux disease, unspecified whether esophagitis present; History of basal cell cancer; Hordeolum externum of right lower eyelid Social History Tobacco Use Types Packs/Day Years Used Date Smoking Tobacco: Never Passive Smoke Exposure: Never Smokeless Tobacco: Never Alcohol Use Standard Drinks/Week Comments Never 0 (1 standard drink = 0.6 oz pur e alcohol) Humiliation, Afraid, Rape, and Kick questionnair e Answer Date Recorded Within the last year, have y ou been afraid of your partner or ex-partner? No 09/04/2024 Within the last year, have y ou been humiliated or emotionally abused in other ways by your partner or ex-partner? No Within the last year, have y ou been kicked, hit, slapped, or otherwise physically hurt by your partner or ex-partner? No 09/04/2024 Within the last year, have y ou been raped or forced to have any kind of sexual activity by your partner or ex-partner? No 09/04/2024 Social Connection and Isolation Panel Answer Date Recorded In a typical week, how many times do you talk on the phone with family, friends, or neighbors? More than three times a week 02/27/2024 How often do you get togethe r with friends or relatives? More than three times a week 02/27/2024 How often do you attend chur ch or yazidi services? Never 02/27/2024 Do you belong to any clubs o r organizations such as advent groups, unions, fraternal or athletic groups, or school groups? No 02/27/2024 How often do you attend meet ings of the clubs or organizations you belong to? Never 02/27/2024 Marital Status Not on file 02/27/2024 Overall Financial Resource Strain (CARDIA) Answe r Date Recorded How hard is it for you to pa y for the very basics like food, housing, medical care, and heating? Not hard at all 02/27/2024 PHQ-2 Answer Date Recorded Patient Health Questionnaire-2 Score 0 02/27/2024 [facility] of Occupat ional Health - Occupational Stress Questionnaire Answer Date Recorded Do you feel stress - tense, restless, nervous, or anxious, or unable to sleep at night because your mind is troubled all the time - these days? Not at all 02/27/2024 Hunger Vital Sign Answer Date Recorded Within the past 12 months, y ou worried that your food would run out before you got the money to buy more. Never true 09/05/19 25 Within the past 12 months, t he food you bought just didn't last and you didn't have money to get more. Never true 09/04/2024 PRAPARE - Transportation Answer Date Re corded In the past 12 months, has l ack of transportation kept you from medical appointments or from getting medications? No 08/09 In the past 12 months, has l ack of transportation kept you from meetings, work, or from getting things needed for daily living? No 09/04/2024 PHQ-9 Answer Date Recorded Patient Health Questionnaire-9 Score 0 02/27/2024 Housing Stability Vital Sign Answer Luis Alfredo e Recorded In the last 12 months, was t here a time when you were not able to pay the mortgage or rent on time? No 09/04/2024 In the past 12 months, how m any times have you moved where you were living? 0 09/04/2024 At any time in the past 12 m [facility], were you homeless or living in a assisted (including now)? No 09/04/2024 Utilities Answer Date Recorded In the past 12 months has th e electric, gas, oil, or water company threatened to shut off services in your home? No 09/04/2024 Comments Unknown Sex and Gender Information Value Date Recorded Sex Assigned at Female 09/03/2024 4:09 PM EDT Legal Sex Female 11:52 AM EDT Gender Identity Female 09/03/2024 4:09 PM EDT Sexual Orientation Not on file documented as of this encounter Last Filed Vital Signs Vital Sign Reading Time Taken Comments Blood Pressure 132/86 09/04/2024 7:34 AM EDT Pulse 69 09/04/2024 7:34 AM EDT Temperature 36.9 C (98.5 F) 09/04/2024 7:34 AM EDT Respiratory Rate 18 09/04/2024 7:34 AM EDT Oxygen Saturation 99% 09/04/2024 7:34 AM EDT Inhaled Oxygen Concentration - - Weight 83.2 kg (183 lb 6.8 oz) 09/04/2024 7:34 A M EDT Height 162.6 cm (5' 4 ) 09/04/2024 7:34 AM EDT Body Mass Index 31.48 09/04/2024 7:34 AM EDT documented in this encounter Functional Status * Calculated C-SSRS Risk Score (Lifetime/Recent) Answer Date of Assessment Author No Risk Indicated 09/04/2024 7:33 AM EDT Mariaelena Zamora LPN * Question Answer Date of Assessment Author 1. Wish to be (Past 1 Month) No 09/04/2024 7:33 AM EDT Mariaelena Coker LPN 2. Non-Specific Active Suici jared Thoughts (Past 1 Month) No 09/04/2024 7:33 AM EDT Kenya Coker LPN 6. Suicidal Behavior (Lifetime) No 7:33 AM EDT Mariaelena Coker LPN documented as of this encounter Miscellaneous Notes * Progress Notes - Ale Aby C, SQL ETL DEVELOPER - 09/04/2024 7:40 AM EDT Subjective Patient ID: Kenya Rowland is a 58 y.o. female. Chief Complaint Patient presents with Stye Right eye x 3 days GERD Fu Pt will reschedule colonoscopy for October 2024 HPI Kenya is a 58 year old female who presents to the clinic to follow up on chronic conditions. Hx of Basal cell on chest and face. Has been seeing [facility]. Had genetic screening that was + for melanoma, so always sticks with routine visits. Reports a FH of Father with melanoma age 70. Reports several aunts and uncles that all of cancer as well. Hypothyroidism--currently taking 50 mcg of levothyroxine daily. Last TSH was checked in February 2024 and resulted within normal range at 3.57. Patient denies any related symptoms including any cold intolerance, heat intolerance, palpitations, fatigue, hair loss, new anxiety, or brain fog. Does notcurrently see an endocrine specialist. GERD--currently taking 20 mg of pantoprazole daily. Has had to undergo esophageal dilation in the past due to strictures. Reports that medication is working well to control symptoms without any adverse effects. Tries to avoid triggering foods and stays elevated when lying down if needed. Does not cu rrently follow with a gastric specialist. Has had a stye on her right eye for the past 3 days. Does take a multivitamin and elderberry daily. Due to schedule annual physical exam in 6 months at checkout. The following portions of the chart were reviewed this encounter and updated as appropriate: Tobacco Allergies Meds Problems Med Hx Surg Hx Fam Hx Current Medications[1] Review of Systems A 14 point ROS reviewed and is otherwise negative except as per HPI. Objective Blood pressure 132/86, pulse 69, temperature 36.9 ??C (98.5 ??F), resp. rate 18, height 1.626 m (5'4 ), weight 83.2 kg (183 lb 6.8 oz), SpO2 99%. Body mass index is 31.48 kg/m??. Physical Exam Vitals reviewed. Constitutional: General: She is not in acute distress. Appearance: Normal appearance. Eyes: General: Right eye: Discharge (thin) and hordeolum (lower lid) present. Neck: Thyroid: No thyroid mass or thyromegaly. Cardiovascular: Rate and Rhythm: Normal rate and regular rhythm. Pulmonary: Effort: Pulmonary effort is normal. Breath sounds: Normal breath sounds. No wheezing, rhonchi or rales. Neurological: Mental Status: She is alert and oriented to person, place, and time. Psychiatric: Mood and Affect: Mood normal. Behavior: Behavior normal. Thought Content: Thought content normal. Judgment: Judgment normal. Assessment/Plan Diagnoses and all orders for this visit: Other specified hypothyroidism - levothyroxine (Synthroid, Levoxyl) 50 MCG tablet; Take 1 tablet by mouth daily. Gastroesophageal reflux disease, unspecified whether esophagitis present - pantoprazole (ProtoNix) 20 MG EC tablet; Take 2 tablets by mouth daily before breakfast. History of basal cell cancer Hordeolum externum of right lower eyelid - trimethoprim-polymyxin b (Polytrim) ophthalmic solution; Administer 1 drop into the right eye 4 times a day for 7 days. Chronic, stable conditions. Doing well on current medications. Will reorder prescription medications to be continued at current dosing. Will be due for repeat blood work in 6 months. Will plan for annual physical around that time. Acute Stye to right lower eyelid. Will order new prescription medication to begin to help control symptoms. Risks vs benefits as well as possible adverse effects discussed with patient. Encouraged use of warm compresses. Encouraged to continue following with derm for skin surveillance. Plans to schedule colonoscopy for October of this year. Other screenings up to date currently. Aby Aguilera APRN [1] Current Outpatient Medications: aspirin 81 MG EC tablet, Take 1 tablet (81 mg) by mouth 1 (one) time each day., Disp: , Rfl: levothyroxine (Synthroid, Levoxyl) 50 MCG tablet, Take 1 tablet by mouth daily., Disp: 90 tablet, Rfl: 1 pantoprazole (ProtoNix) 20 MG EC tablet, Take 2 tablets by mouth daily before breakfast., Disp: 180tablet, Rfl: 3 trimethoprim-polymyxin b (Polytrim) ophthalmic solution, Administer 1 drop into the right eye 4 times a day for 7 days., Disp: 10 mL, Rfl: 0 documented in this encounter Plan of Treatment Upcoming Encounters Date Type Department Care Team (Late st Contact Info) Description 03/11/2025 7:40 AM EST Office Visit [facility] [address] [place] [address] Aby Aguilera APRN [address] [place] [address] documented as of this encounter Visit Diagnoses Diagnosis Other specified hypothyroidism- Primary Gastroesophageal reflux disease, unspecified whether esophagitis present History of basal cell cancer Hordeolum externum of right lower eyelid documented in this encounter Additional Health Concerns Assessment Noted Time PHQ-9 Depression Total Score: 0 02/27/20 7:48 AM EST A Body Mass Index follow-up plan has been documented for the patient 02/27/2024 10:37 AM EST documented as of this encounter Care Teams Aerodynamicist Relationship Specialty Start Date End Date Aby Aguilera APRN [address] [place] [address] PCP - General Family Medicine 02/27/24 documented as of this encounter
[2024-10-11 19:54] LABS: Coronavirus 19, PCR Not Detected (NotDetected); Influenza A, PCR Not Detected (NotDetected); Influenza B, PCR Not Detected (NotDetected)
--- OUTSIDE RECORDS SUMMARY | 2024-10-14 10:16 | XMS_ITS | Encounter Summary ---
Author Organization Healthcare Address [address] [place] [address] Care Team Providers Care Steel Melter Name Role Phone Aby Aguilera APRN Primary Care Provider [phone] Encounter Details Date Type Department Care Team (Latest Contact Info) Description 09/04/2024 Travel Social History Tobacco Use Types Packs/Day Years [...] often do you attend chur ch or sabianist services? Never 02/27/2024 Do you belong to any clubs o r organizations such as yazdanism groups, unions, fraternal or athletic groups, or [...] Recorded Patient Health Questionnaire-2 Score 0 02/27/2024 [facility] [place] of Occupat ional Health - Occupational Stress [...] money to buy more. Never true 09/05/19 Within the past 12 months, t he [...] any time in the past [address] [facility], were you homeless or living in a fdc (including now)? No 09/04/2024 Utilities Answer Date [...] on file documented as of this encounter Functional Status * Calculated C-SSRS Risk Score (Lifetime/Recent) Answer Date of Assessment Author No Risk Indicated 09/04/2024 7:33 AM EDT Mariaelena Zamora LPN * Question Answer Date of Assessment Author 1. Wish to be (Past 1 Month) No 025 7:33 AM EDT Mariaelena Coker LPN 2. Non-Specific Active Suici jared Thoughts (Past 1 Month) No 09/04/2024 7:33 AM EDT Kenya Coker LPN 6. Suicidal Behavior (Lifetime) No 7:33 AM EDT Mariaelena Coker LPN documented as of this encounter Plan of Treatment Upcoming Encounters Date Type Department Care Team (Late st Contact Info) Description 03/11/2025 7:40 AM EST Office Visit [facility] [address] [place] [address] Aby Aguilera APRN [address] [place] [address] documented as of this encounter Visit Diagnoses Not on filedocumented in this encounter Additional Health Concerns Assessment Noted Time PHQ-9 Depression Total Score: 0 02/27/20 24 7:48 AM EST A Body Mass Index follow-up plan has been documented for the patient 02/27/2024 10:37 AM EST documented as of this encounter Care Teams Steel Melter Relationship Specialty Start Date End Date Aby Aguilera, NIGHAT [address] [place] [address] PCP - General Family Medicine 02/27/24 documented as of this encounter
--- OUTSIDE RECORDS SUMMARY | 2024-10-14 10:16 | XMS_ITS | Encounter Summary ---
Author Organization Healthcare Address [address] [place] [address] Care Team Providers Care Rubber Goods Assembler Name Role Phone Aby Aguilera APRN Primary Care Provider [phone] Encounter Details Date Type Department Care Team (Latest Contact Info) Description 09/03/2024 Travel Social History Tobacco Use Types Packs/Day [...] often do you attend chur ch or jehovah's witness services? Never 02/27/2024 Do you belong to any clubs o r organizations such as yarsani groups, unions, fraternal or athletic groups, or [...] Recorded Patient Health Questionnaire-2 Score 0 02/27/2024 [facility] of Occupat ional Health - Occupational Stress [...] time in the past 12 m [facility], were you homeless or living in a long term (including now)? No 09/04/2024 Utilities Answer Date [...] on file documented as of this encounter Plan of Treatment Upcoming Encounters Date Type Department Care Team (Late st Contact Info) Description 03/11/2025 7:40 AM EST Office Visit [facility] [address] [place] [address] Aby Aguilera APRN [address] [place] [address] documented as of this encounter Visit Diagnoses Not on filedocumented in this encounter Additional Health Concerns Assessment Noted Time PHQ-9 Depression Total Score: 0 02/27/20 7:48 AM EST A Body Mass Index follow-up plan has been documented for the patient 02/27/2024 10:37 AM EST documented as of this encounter Care Teams Rubber Goods Assembler Relationship Specialty Start Date End Date Aby Aguilera, NIGHAT [address] [place] [address] PCP - General Family Medicine 02/27/24 documented as of this encounter
--- OUTSIDE RECORDS SUMMARY | 2024-10-14 10:16 | XMS_ITS | Clinical Summary ---
Author Organization [facility] Address [address] [place] [address] Care Team Providers Care Shrimp Peeler Name Role Phone Domenic Pantoja APRN Primary Care Provider Allergies No known active allergies Medications aspirin 81 MG EC tablet Take 1 tablet (81 mg) by mouth 1 (one) time each day. Active levothyroxine (Synthroid, Levoxyl) 50 MCG tabletIndications:O ther specified hypothyroidism Take 1 tablet by mouth daily. 90 tablet 1 5 Active pantoprazole (Protonix) 40 MG EC tablet Take 1 tablet by mouth daily before breakfast. Do not crush, chew, or split. 90 tablet 3 5 Active Active Problems Problem Noted Date Diagnosed Date Gastroesophageal reflux disease 02/27/2024 Hyperlipidemia 02/27/2024 Hypothyroidism 02/27/2024 Basal cell carcinoma (BCC) of chest 01/20/2021 Encounters Date Type Department Care Team Description 09/04/2024 7:40 AM EDT Office Visit [facility] [address] [place] [address] Domenic Pantoja, EXHIBITION DESIGNER Other specified hypothyroidism (Primary Dx); Gastroesophageal reflux disease, unspecified whether esophagitis present; History of basal cell cancer; Hordeolum externum of right lower eyelid 09/04/2024 Travel 09/03/2024 Travel 08/30/2024 Telephone [facility] [address] [place], [place] [address] Domenic Pantoja APRN Prior-authorization/insur ance Verification 08/28/2024 Refill [facility] [address] [place], [place] [address] Domenic Pantoja APRN Gastroesophageal reflux disease, unspecified whether esophagitis present from Last 3 Months Immunizations Immunization Administration Dates Next Due Moderna COVID-19 Vaccine (Hims Manager) 12+ years 09/2021,08/09/2021 TD (adult), 2 Lf tetanus tox oid, preservative free, adsorbed 09/20/2000 Family History Medical History Relation Name Comments Melanoma Father Diabetes Maternal Grandmother Heart disease Maternal Grandmother Atrial fibrillation Mother Dementia Mother Relation Name Status Comments Father Maternal Grandmother Mother Alive Social History Tobacco Use Types Packs/Day Years [...] week 02/27/2024 How often do you attend [facility] or episcopalian services? Never 02/27/2024 Do you belong to any clubs o r organizations such as sabianism groups, unions, fraternal or athletic groups, or [...] Recorded Patient Health Questionnaire-2 Score 0 02/27/2024 [facility] Occupat ional Health - Occupational Stress [...] any time in the [facility] were you [facility] or living in a intermediate (including now)? No 09/04/2024 Utilities Answer Date [...] PM EDT Sexual Orientation Not on file Last Filed Vital Signs Vital Sign Reading [...] Mass Index 31.48 09/04/2024 7:34 AM EDT Plan of Treatment Upcoming Encounters Date Type Department Care Team (Late st Contact Info) Description 03/11/2025 7:40 AM EST Office Visit [facility] [address] [place] [address] Domenic Pantoja, EXHIBITION DESIGNER [address] [place] [address] Health Maintenance Due Date Last Done Comments [facility]-Infant/Child/Adol SDOH Screenings 1965 [facility]-Hepatitis B Vaccines (1 of 3 - 19+ 3-dose series) 1984 [facility]-Pneumococcal Vaccine: 50+ Years (1 of 2 - PCV) 1984 [facility]-Zoster Vaccines (1 of 2) 1984 [facility]-Pap Smear 1986 [facility]-Cervical Cancer Screening 12/26/1995 [facility]-HPV/Cotest 12/26/1995 [facility]-DTaP,Tdap,and Td Vaccines (1 - Tdap) 09/21/2000 09/20/2000 CT Colonography 2010 FIT-DNA 2010 FIT 2010 FOBT 2010 Sigmoidoscopy 2010 [id number] Vaccine ( season) 2023 08/13/2021, 08/09/2021, 05/05/2020, Additional history exists Colonoscopy 03/27/2024 03/27/2017 [facility]-Colorectal Cancer Screening 03/27/2024 [facility]-Influenza Vaccine (#1) 2024 [facility]-Depression Screening 02/26/2025 02/27/2024, 02/08 [facility]- SDOH Screenings 03/07/2025 [facility]-Adult SDOH Screenings 03/07/2025 09/04/2024 [facility]-Breast Cancer Screening 03/04/202602/09, 03/04/2024, 11/11/2019, Additional history exists [facility]-HIV Screening Completed 02/27/2024 [facility]-Hepatitis C Screening Completed 02/27/2024 [facility]-Obesity Intervention Completed 024, 02/27/2024, 02/27/2024 HPV Vaccines Aged Out No longer eligi ble based on patient's age to complete this topic [facility]-HIB Vaccines Aged Out No longer e ligible based on patient's age to complete this topic [facility]-Hepatitis A Vaccines Aged Out No longer eligible based on patient's age to complete this topic [facility]-IPV Vaccines Aged Out No longer e ligible based on patient's age to complete this topic [facility]-Rotavirus Vaccines Aged Out No lo nger eligible based on patient's age to complete this topic Procedures Procedure Name Priority Date/Time Associated Diagnosis Comments MAMMOGRAPHY BREAST SCREENING TOMOSYNTHESIS BILATERAL 03/04/2024 11:09 AM EST HEPATITIS C ANTIBODY W/REFLEX TO HCV QUANT PCR Routine 02/27/2024 8:28 AM EST Need for hepatitis C screening test HIV 1/2 ANTIBODY/ANTIGEN SCREEN WITH REFLEX TO HIV I/II DIFFERENTIATION Routine 02/27/2024 8:28 AM EST Screening for human immunodeficiency virus COLONOSCOPY EXTERNAL RESULT 03/27/2017 from Last 3 Months or Most Recently Relevant to Health Maintenance Results * Mammography Breast Screening Tomosynthesis Bilateral (03/04/2024 11:09 AM EST) Anatomical Region Laterality Modality Breast Bilateral Mammography 03/04/2024 11:0 9 AM EST Narrative 03/04/2024 12:10 [place] [address] Name: MARIAELENA DIA Exam Date: 03/04/2024 : 1965 Age 58 years Gender: F Physician: DOMENIC PANTOJA Facility: [facility] Facility HSV: Outpatient Exam: VANDANA SCRN MAMMO W/CAD BILAT Exam: 3-D screening mammography including tomosynthesis and CAD (Computer Assisted Detection). Clinical indication: Asymptomatic screening exam Comparison: Exams to 2019 TECHNIQUE: Routine bilateral 2D screening mammogram with CC and MLO views obtained. 3-D tomosynthesis and Computer assisted detection were utilized for this exam. BREAST DENSITY: There are scattered fibroglandular densities FINDINGS: No suspicious mass, architectural distortion, or suspicious calcifications are present. IMPRESSION: No evidence of malignancy in either breast Recommendation: Annual screening mammography recommended in one year The results of this report will be communicated to the patient by letter in layman's terms. ACR BI-RADS: BI-RADS assessment category 1: Negative mammogram Mammography does not detect approximately 10-15% of breast cancers. A normal mammogram does not exclude breast cancer in a patient with palpable mass or abnormal findings on physical examination. These patients may need biopsies and when clinically indicated a biopsy should not be postponed because of a normal mammogram. If the patient has breast surgery or biopsy, FDA/SA Regulatory Guidelines mandate that this facility receive pathologic results for follow-up correlation. Electronically signed by:Brandon Antunez MD03/04/2024 12:06 PM EST Dictated By: Brandon Antunez Transcribed By: Transcribed On: 03/04/2024 11:39 AM Electronically signed by: Brandon Antunez 03/04/2024 Thank you for referring MARIAELENA DIA to [facility]. Legally authenticated by ALLEN RM 2024-03-04 11:39:48 Procedure Note Provider, Dominic [place] - 03/04/2024 [facility] [address] [place] [address] Name: MARIAELENA DIA Exam Date: 03/04/2024 : 1965 Age 58 years Gender: F Physician: DOMENIC PANTOJA Facility: [facility] Facility HSV: Outpatient Exam: VANDANA SCRN MAMMO W/CAD BILAT Exam: 3-D screening mammography including tomosynthesis and CAD(Computer Assisted Detection). Clinical indication: Asymptomatic screening exam Comparison: Exams to 2019 TECHNIQUE: Routine bilateral 2D screening mammogram with CC and MLOviews obtained. 3-D tomosynthesis and Computer assisted detection were utilizedfor this exam. BREAST DENSITY: There are scattered fibroglandular densities FINDINGS: No suspicious mass, architectural distortion, or suspicious calcifications are present. IMPRESSION: No evidence of malignancy in either breast Recommendation: Annual screening mammography recommended in one year The results of this report will be communicated to the patient by letterin layman's terms. ACR BI-RADS: BI-RADS assessment category 1: Negative mammogram Mammography does not detect approximately 10-15% of breast cancers. Anormal mammogram does not exclude breast cancer in a patient with palpable massor abnormal findings on physical examination. These patients may needbiopsies and when clinically indicated a biopsy should not be postponed because ofa normal mammogram. If the patient has breast surgery or biopsy, FDA/MQSA Regulatory Guidelines mandate that this facility receive pathologicresults for follow-up correlation. Electronically signed by:Brandon Antunez MD03/04/2024 12:06 PM [facility] Dictated By: Brandon Antunez Transcribed By: Transcribed On: 03/04/2024 11:39 AM Electronically signed by: Brandon Antunez 03/04/2024 Thank you for referring MARIAELENA DIA to [facility]. Legally authenticated by ALLEN RM 2024-03-04 11:39:48 Domenic Pantoja EXHIBITION DESIGNER IMG BI PROCEDURES Final Res ult * HIV 1 & 2 Antibody/Antigen Screen (02/27/2024 8:28 AM EST) HIV 1 & 2 Antibody/Antigen Screen Non Reactive Non Reactive 02/27/2024 2:03 PM EST [facility] Comment:Screening for HIV 1 & 2 antibodies, and P24 antigen is NONREACTIVE. No confirmatory testing is required. Blood Venous blood specimen / Unknown Venipuncture / Unknown 02/27/2024 8:28 AM EST 02/27/2024 8:28 AM EST Domenic Pantoja APRN LAB BLOOD ORDERABLES Final Result Performing Organization Address [facility] Co de Phone Number [facility] [address] [place] [address] * Hepatitis C Antibody w/Reflex to HCV Quant PCR (02/27/2024 8:28 AM EST) Hepatitis C Antibody Negative Negative 02/27/2024 2:02 PM EST [facility] Blood Venous blood specimen / Unknown Venipuncture / Unknown 02/27/2024 8:28 AM EST 02/27/2024 8:28 AM EST Domenic Pantoja APRN LAB BLOOD ORDERABLES Final Result [facility] [address] [place] [address] * Colonoscopy External Result (03/27/2017) Anatomical Region Laterality Modality Endoscopy Narrative 03/27/2017 Ordered by an unspecified provider. us External Provider GI PROCEDURE ORDERABLES Final Result from Last 3 Months or Most Recently Relevant to Health Maintenance Insurance ANTHEM Care Teams Shrimp Peeler Relationship Specialty Start Date End Date Domenic Pantoja APRN [address] [place] [address] PCP - General Family Medicine 02/27/24
--- OUTSIDE RECORDS SUMMARY | 2024-10-14 10:16 | XMS_ITS | Encounter Summary ---
Author Organization [facility] Address [address] [place] [address] Care Team Providers Care Lap Runner Name Role Phone Aby Aguilera APRN Primary Care Provider [phone] Reason for Visit * Reason Comments Med Refill Encounter Details Date Type Department Care Team (Late st Contact Info) Description 08/28/2024 Refill [facility] [address] [place] [address] Aby Aguilera, NIGHAT [address] [address] Gastroesophageal reflux disease, unspecified whether esophagitis present Social History Tobacco Use Types Packs/Day Years Used Date Smoking Tobacco: Never Passive Smoke Exposure: Never Smokeless Tobacco: Never Alcohol Use Standard Drinks/Week Comments Never 0 (1 standard drink = 0.6 oz pur e alcohol) Humiliation, Afraid, Rape, and Kick questionnair e Answer Date Recorded Within the last year, have y ou been afraid of your partner or ex-partner? No 02/27/2024 Within the last year, have y ou been humiliated or emotionally abused in other ways by your partner or ex-partner? No Within the last year, have y ou been kicked, hit, slapped, or otherwise physically hurt by your partner or ex-partner? No 02/27/2024 Within the last year, have y ou been raped or forced to have any kind of sexual activity by your partner or ex-partner? No 02/27/2024 Social Connection and Isolation Panel Answer Date Recorded In a typical week, how many times do you talk on the phone with family, friends, or neighbors? More than three times a week 02/27/2024 How often do you get togethe r with friends or relatives? More than three times a week 02/27/2024 How often do you attend chur ch or synagogue services? Never 02/27/2024 Do you belong to any clubs o r organizations such as sikh groups, unions, fraternal or athletic groups, or [...] Recorded Patient Health Questionnaire-2 Score 0 02/27/2024 [facility] Occupat ional Health - Occupational Stress [...] the money to buy more. Never true 02/27/20 24 Within the past 12 months, t he food you bought just didn't last and you didn't have money to get more. Never true 02/27/2024 PRAPARE - Transportation Answer Date Re corded In the past 12 months, has l ack of transportation kept you from medical appointments or from getting medications? No 02/08 In the past 12 months, has l ack of transportation kept you from meetings, work, or from getting things needed for daily living? No 02/27/2024 PHQ-9 Answer Date Recorded Patient Health Questionnaire-9 Score 0 02/27/2024 Housing Stability Vital Sign Answer Luis Alfredo e Recorded In the last 12 months, was t here a time when you were not able to pay the mortgage or rent on time? No 02/27/2024 In the past 12 months, how m any times have you moved where you were living? 1 02/27/2024 At any time in the past 12 [facility], were you homeless or living in a detention (including now)? No 02/27/2024 Utilities Answer Date Recorded In the past 12 months has th e [employer], gas, oil, or water [employer] threatened to shut off services in your home? No 02/27/2024 Comments Unknown Sex and Gender Information Value Date Recorded Sex Assigned at Female 09/03/2024 4:09 PM EDT Legal Sex Female 11:52 AM EDT Gender Identity Female 09/03/2024 4:09 PM EDT Sexual Orientation Not on file documented as of this encounter Miscellaneous Notes * Telephone Encounter - Nuria Banks PharmD - 08/29/2024 10:35 AM EDT 1 medication(s) has been approved per protocol. Please keep upcoming appointment on 09/04/24 for additional refills. Medications have been pended for refill at upcoming appointment. documented in this encounter Plan of Treatment Upcoming Encounters Date Type Department Care Team (Late st Contact Info) Description 03/11/2025 7:40 AM EST Office Visit [facility] [address] [place] [address] Aby Aguilera, NIGHAT [address] [place] [address] documented as of this encounter Visit Diagnoses Diagnosis Gastroesophageal reflux disease, unspecified whether esophagitis present documented in this encounter Additional Health Concerns Assessment Noted Time PHQ-9 Depression Total Score: 0 02/27/20 24 7:48 AM EST A Body Mass Index follow-up plan has been documented for the patient 02/27/2024 10:37 AM EST documented as of this encounter Care Teams Lap Runner Relationship Specialty Start Date End Date Aby Aguilera, LAY OUT TECHNICIAN [address] [place] [address] PCP - General Family Medicine 02/27/24 documented as of this encounter
--- OUTSIDE RECORDS SUMMARY | 2024-10-14 10:17 | XMS_ITS | Patient Health Record ---
Author Organization [facility] Address [address] [place], [place] [address] Care Team Providers Care Feather Cutting Machine Feeder Name Role Phone Tiffany Lorenz Primary Care Provider Alberta Byers Unavailable [phone] REASON FOR REFERRAL No Information MEDICATIONS Medication SIG (Take, Route, Fr equency, Duration) Notes Start Date End Date Status Claritin Active Protonix Active Synthroid Active Multivitamin Active Azelaic Acid 15 % 1 application Inspector Assemblies And Installations ally Twice a day for 30 days 12/19/2019 Active Biotin Active IMMUNIZATIONS Vaccine Route Administration Date Status Comme nts Influenza Unknown 01/27/2020 Refused Influenza Unknown 05/04/2020 Refused Pneumococcal Unknown 01/27/2020 Refused Pneumococcal Unknown 05/04/2020 Refused SOCIAL HISTORY Sex Assigned At : Social History Observation Description Sex Assigned At Unknown Alcohol Question Answer Notes Did you have a drink containing alcohol in the p ast year? No Points 0 Interpretation Negative PROBLEMS Problem Type ICD Code Onset Dates Problem Status W/U Status Risk SNOMED Code Notes Problem Neoplasm of uncertain behavior of skin (D48.5) Active confirmed Neoplasm of uncertain behavior of skin (73417991) Problem Actinic keratosis (L57.0) Active confirmed Actinic keratosis (368432) Problem Basal cell carcinoma of skin of other part of trunk (C44.519) Active confirmed Basal cell carcinoma of truncal skin (947640475) Problem Hemangioma of skin and subcutaneous tissue (D18.01) Active confirmed Hemangioma o f skin and subcutaneous tissue (632371872) Problem Other skin changes due to chronic exposure to nonionizing radiation (L57.8) Active confirmed Problem Rosacea, unspecified (L71.9) Active confirmed Rosacea (152826032) Problem Encounter for screening for malignant neoplasm of skin (Z12.83) Active confirmed Screening for malignant neoplasm of skin (352795076) Problem Family history of malignant neoplasm, unspecified (Z80.9) Active confirmed Family history of cancer (266718573) Problem Personal history of other malignant neoplasm of skin (Z85.828) Active confirmed History of malignant neoplasm of skin (situation) (239607751) PLAN OF TREATMENT No Information Insurance Providers Payer Name Payer Address Payer Phone Subscriber Number Group Number Insured Name Patient Relationship to Insured Coverage Start Date Coverage End Date [facility] [address] [place] [address] [id number] Mariaelena Rowland Self - patient is the insured MEDICAL (GENERAL) HISTORY Medical History History ICD Code h/o Bcc Surgical History Surgery Date(Month/Year) Denies significant past surgical history 04/2020 Hospitalization History Reason Date(Month/Year) Denies Recent Hospital Stay Within past 6 Months 04/2020
--- OUTSIDE RECORDS SUMMARY | 2024-10-14 10:17 | XMS_ITS | Data Portability ---
Author Organization [place] [facility], 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 Rapid strep +. We will treat with PCN oral antibiotic. Advised to complete entire course. Rest. Increase fluids and take IBU for throat pain. She verbalizes understanding of tx plan. If no improvement in 5-7 days, rto. Not available 05/14/2018 13:55:36 10/15/2018 10/15/2018 Left achilles tendinitis. Xrays show no fractures/ arthritis. calcaneal spur noted. Recommended PT, heel stretches, heel inserts, oral nsaids and activity modification. RTO 6 weeks. [email or web address] Not available 10/15/2018 09:16:29 11/06/2019 11/06/2019 Stable PE. VSS. Preventative health maintenance reviewed; see list below. Encouraged daily exercise and balanced diet. Orders sent for routine fasting labs. Will call with results. Renew daily medications. FU in one year. Sooner if needed. Encouraged to call with questions or concerns. Not available 11/07/2019 08:34:26 09/14/2020 09/14/2020 Stable PE. VSS. Preventative health maintenance reviewed; see list below. Encouraged daily exercise and balanced diet. Renew daily medications. Due for labs. Will collect at hospital; will add vitamin check. She is postmenopausal; never had DEXA. Will add this screening as well. FU in one year. Sooner if needed. Encouraged to call with questions or concerns. Not available 09/15/2020 06:31:12 Plan of Treatment Reminders Order Date Submit Date Provider Last Modified By Organization Details Last Modified Time Details Appointments None recorded. Lab vitamin D, 25-hydroxy, total, serum 2020 021 [facility] Not available 1 08:14:53 vitamin B12, serum 2020 021 TIMOTHY Not available 1 07:11:28 TSH, serum or plasma 2020 021 [email or web address] Not available 1 11:35:25 T4, free, serum 2020 021 TIMOTHY Not available 1 08:17:06 CMP, serum or plasma 2020 021 TIMOTHY Not available 1 08:17:00 lipid panel, serum 2020 021 [email or web address] Not available 1 11:35:25 CBC w/ auto diff 2020 021 TIMOTHY Not available 1 07:59:09 T4, free, serum 2019 020 [facility] (Lab Orders), [address], [place], [address], 0 08:35:56 lipid panel, serum 2019 020 [facility] (Lab Orders), [address], [place], [address], 0 08:35:43 CBC w/ auto diff 2019 020 [facility] (Lab Orders), [address], [place], [address], 0 08:23:32 CMP, serum or plasma 2019 020 [facility] (Lab Orders), [address], [place], [address], 0 08:35:54 TSH, serum or plasma 2019 020 [facility] (Lab Orders), [facility] [address], [address], 0 08:35:55 rapid strep group A, throat 2018 019 [facility] In-House Results, For Internal Use Only, Do Not Delete/merge, [id number] 9 14:03:23 rapid flu (A+B) 2018 019 [facility] In-House Results, For Internal Use Only, Do Not Delete/merge, [id number] 9 14:03:29 Referral physical therapist [facility] 2018 [email or web address] [address] [place] [address] [address], [place], [address], 9 16:50:24 Procedures None recorded. Surgeries None recorded. Imaging DEXA 2020 021 [facility] (Scheduling), [address] [place] [address], [place], [address], 1 16:09:00 MAMMO, screening, digital, bilateral 2019 020 [facility] (Scheduling), [address] [place] [address], [address], 0 10:12:24 Medication Orders pantoprazol e 40 mg tablet,deanna yed release 2020 021 [facility], [address] [place] [address], [address], [id number], 1 06:31:59 Synthroid 50 mcg tablet 2020 021 [facility], [address] [place] [address] [address], [place], [address], 1 06:32:00 fluticasone propionate 50 mcg/actuati on nasal spray,suspe nsion 2019 020 [email or web address] 10 [facility], [address] [place] [address] [address], [place], [address], 1 15:23:17 naproxen 500 mg tablet 2018 019 [email or web address] 10 [facility], [address] [place] [address] [address], [place], [address], 1 15:23:22 penicillin V potassium 500 mg tablet 2018 019 [email or web address] 4 [facility], [address] [place] [address] [address], [place], [address], 9 08:59:37 Diflucan 150 mg tablet 2018 019 [email or web address] 4 [facility], [address] [place] [address] [address], [place], [address], 9 08:59:10 Patient TargetsNo targets recorded. Patient Instructions Encounter Date Encounter Id Patient Instructions Last Modified By Organization Details Last Modified Time 11/06/2019 [id number] INFLUENZA VACCIN E Next vaccination to be given fall TD/TDAP Recommended today PNEUMONIA VACCINE Recommended at age 65 SHINGLES Recommended today MAMMOGRAM: Last Mammogram __ Ordered DEXA SCAN CERVICAL SCREENING/PELVIC EXAMINATION UTD COLORECTAL SCREENING: Last Colonoscopy UTD DEPRESSION SCREENING Negative BMI Overweight try to lose 5% of your body weight NUTRITION Heart Healthy Diet PHYSICAL ACTIVITY Appropriate physical activity minimum of 20-30 minutes activity that causes mild breathlessness/da y VISION Recommended today ALCOHOL USE No alcohol use TOBACCO USE non smoker LUNG CANCER SCREENINGNon Smoker-not indicated SEXUALLY ACTIVE Yes, Patient is in monogamous relationship HEPATITIS C SCREENING Not indicated GLUCOSE SCREENING Ordered LIPID SCREENING Ordered Not available 11/07/2019 08:35:33 09/14/2020 [id number] INFLUENZA VACCIN E Next vaccination to be given fall of 2020 TD/TDAP Recommended today, PNEUMONIA VACCINE Recommended at age 65 SHINGLES Recommended today MAMMOGRAM: Last Mammogram Nov 2019 Recommended today. She is aware of month it is needed. Is moving and may arrange closer to new location. DEXA SCAN Ordered CERVICAL SCREENING/PELVIC EXAMINATION Recommended today, will make her own appt COLORECTAL SCREENING: Last Colonoscopy 2016 No screening necessary patient is up to date DEPRESSION SCREENING Negative BMI Overweight try to lose 5% of your body weight NUTRITION Heart Healthy Diet PHYSICAL ACTIVITY Need more exercise/physical activity minimum of 20-30 minutes activity that causes mild breathlessness/da y VISION Recommended today ALCOHOL USE No alcohol use TOBACCO USE non smoker LUNG CANCER SCREENING SEXUALLY ACTIVE Yes, Patient is in monogamous relationship HEPATITIS C SCREENING Not indicated GLUCOSE SCREENING Ordered LIPID SCREENING Ordered Not available 09/15/2020 06:35:00 Reason for Referral Physical Therapist Referral for Left Achilles tendinitis achilles tendonitis Referring Physician: Gatito Swift, Orthopedic Surgery, Encounter Date: 10/15/2018 Results Created Date Observation Date Name Description Value Unit Range Abnormal Flag Note LastModifiedBy Organization Detail LastModifiedTime 05/14/19 19 05/14/2018 rapid flu (A+B) Flu negati ve Not Available In-House Results For Internal Use Only, Do Not Delete/merge, [id number] 05/14/2018 13:57:04 05/14/19 19 05/14/2018 rapid strep group A, throa t Strep positi ve Not Available In-House Results For Internal Use Only, Do Not Delete/merge, [id number] 05/14/2018 13:44:49 11/07/19 20 11/07/2019 CBC w/ auto diff WBC 6.1 10*3/ uL 4.8-[address] [facility]) [address] [place], [address], 11/07/2019 08:23:32 11/07/19 20 11/07/2019 CBC w/ auto diff RBC 4.34 10*6/ uL 4.20-[address] [facility]) [address] [place], [address], 11/07/2019 08:23:32 11/07/19 20 11/07/2019 CBC w/ auto diff HGB 14.2 g/dL 12.0-[address] [facility]) [address], [place], [address], 11/07/2019 08:23:32 11/07/19 20 11/07/2019 CBC w/ auto diff HCT 41.1 % 37.0-[address] [facility] ([facility]) [address], [place], [address], 11/07/2019 08:23:32 11/07/19 20 11/07/2019 CBC w/ auto diff MCV 94.6 fL 81.0-[address] [facility] ([facility]) [address], [place], [address], 11/07/2019 08:23:32 11/07/19 20 11/07/2019 CBC w/ auto diff MCH 32.7 pg 27.0-3 [address] [facility]) [address], [place], [address], 11/07/2019 08:23:32 11/07/19 20 11/07/2019 CBC w/ auto diff MCHC 34.5 g/dL 33.0-[address] [facility]) [address], [place], [address], 11/07/2019 08:23:32 11/07/19 20 11/07/2019 CBC w/ auto diff RDW 12.3 % 11.5-[address] [facility]) [address], [place], [address], 11/07/2019 08:23:32 11/07/19 20 11/07/2019 CBC w/ auto diff plt 307 10*3/ uL 130-[address] [facility]) [address], [place], [address], 11/07/2019 08:23:32 11/07/19 20 11/07/2019 CBC w/ auto diff MPV 8.0 fL 7.4-[address] [facility]) [address], [place], [address], 11/07/2019 08:23:32 11/07/19 20 11/07/2019 CBC w/ auto diff ne% 57.8 % 43.0-[address] [facility]) [address], [place], [address], 11/07/2019 08:23:32 11/07/19 20 11/07/2019 CBC w/ auto diff ly% 31.3 % 16-50 Not Available [facility] ([facility]) [address], [place], [address], 11/07/2019 08:23:32 11/07/19 20 11/07/2019 CBC w/ auto diff MO% 8.0 % 5.5-[address] [facility]) [address], [place], [address], 11/07/2019 08:23:32 11/07/19 20 11/07/2019 CBC w/ auto diff eo% 2.5 % 0.9-5. [address] [facility]) [address], [place], [address], 11/07/2019 08:23:32 11/07/19 20 11/07/2019 CBC w/ auto diff ba% 0.4 % 0.2-1. [address] [facility]) [address], [place], [address], 11/07/2019 08:23:32 11/07/19 20 11/07/2019 CBC w/ auto diff ne# 3.5 10*3/ uL 2.2-4. [address] [facility]) [address], [place], [address], 11/07/2019 08:23:32 11/07/19 20 11/07/2019 CBC w/ auto diff ly# 1.9 10*3/ uL 1.3-2. [address] [facility]) [address], [place], [address], 11/07/2019 08:23:32 11/07/19 20 11/07/2019 CBC w/ auto diff MO# 0.5 10*3/ uL 0.3-0. [address] [facility] [address], [place], [address], 11/07/2019 08:23:32 11/07/19 20 11/07/2019 CBC w/ auto diff eo# 0.2 10*3/ uL 0.0-0. [address] [facility]) [address], [place], [address], 11/07/2019 08:23:32 11/07/19 20 11/07/2019 CBC w/ auto diff ba# 0.0 10*3/ uL 0.0-0. [address] [facility]) [address], [place], [address], 11/07/2019 08:23:32 11/07/19 20 11/07/2019 lipid panel , serum chol 170 mg/dL 0-200 Not Available [facility] ([facility]) [address], [place], [address], 11/07/2019 08:35:43 11/07/19 20 11/07/2019 lipid panel , serum chol/HDL 3.7 -4.4 Not Available [facility] ([facility]) [address], [place], [address], 11/07/2019 08:35:43 11/07/19 20 11/07/2019 lipid panel , serum HDL chol 46.0 mg/dL 39-999 99 CHOL/ HDL Ratio refer ence range ----- - < 4.4 HDL josé luis stero l refer ence range ----- > or = 40 mg/dl LDL josé luis stero l refer ence range ----- < 130 mg/dl RESUL TS FOR LDL JOSÉ LUIS STERO L AND CHOL/ HDL CHOL RATIO ARE CALCU LATIO NS DM Not Available [facility]) [address], [place], [address], 11/07/2019 08:35:43 11/07/1911/07/2019 lipid panel , serum LDL chol 97 mg/dL -130 Not Available [facility] ([facility]) [address], [place], [address], 11/07/2019 08:35:43 11/07/19 20 11/07/2019 lipid panel , serum trig 137 mg/dL 40-150 Not Available [facility] ([facility]) [address], [place], [address], 11/07/2019 08:35:43 11/07/19 20 11/07/2019 CMP, serum or plasm a sodium 143 mmol/ L 136-[address] [facility]) [address], [place], [address], 11/07/2019 08:35:54 11/07/1911/07/2019 CMP, serum or plasm a K 4.1 mmol/ L 3.5-5. [address] [facility]) [address], [place], [address], 11/07/2019 08:35:54 11/07/1911/07/2019 CMP, serum or plasm a cL 106 mmol/ L 98-[address] [facility] ([facility]) [address], [place], [address], 11/07/2019 08:35:54 11/07/1911/07/2019 CMP, serum or plasm a C 02 28.3 mmol/ L 21-[address] [facility] ([facility]) [address], [place], [address], 11/07/2019 08:35:54 11/07/1911/07/2019 CMP, serum or plasm a BUN 22 mg/dL 7-18 high Not Available [facility] ([facility]) [address], [place], [address], 11/07/2019 08:35:54 11/07/1911/07/2019 CMP, serum or plasm a glucose 100 mg/dL 74-106 Not Available [facility] ([facility]) [address], [place], [address], 11/07/2019 08:35:54 11/07/1911/07/2019 CMP, serum or plasm a creat bd 1.1 mg/dL 0.6-1. [address] [facility]) [address], [place], [address], 11/07/2019 08:35:54 11/07/1911/0611/07/2019 CMP, serum or plasm a A/G 1.09 1.4-2. [address] [facility]) [address], [place], [address], 11/07/2019 08:35:54 11/07/19 20 11/07/2019 CMP, serum or plasm a agap 8.7 7-16 Not Available [facility] ([facility]) [address], [place], [address], 11/07/2019 08:35:54 11/07/19 20 11/07/2019 CMP, serum or plasm a albumin 3.8 g/dL 3.4-5. [address] [facility]) [address], [place], [address], 11/07/2019 08:35:54 11/07/19 20 11/07/2019 CMP, serum or plasm a alk phos 86 U/L 46-116 Not Available [facility] ([facility]) [address], [place], [address], 11/07/2019 08:35:54 11/07/19 20 11/07/2019 CMP, serum or plasm a bili T 0.6 mg/dL .2-1.0 Not Available [facility] ([facility]) [address], [place], [address], 11/07/2019 08:35:54 11/07/19 20 11/07/2019 CMP, serum or plasm a BUN/cr 20.0 12-20 Not Available [facility] ([facility]) [address], [place], [address], 11/07/2019 08:35:54 11/07/19 20 11/07/2019 CMP, serum or plasm a calcium 9.2 mg/dL 8.5-[address] [facility]) [address], [place], [address], 11/07/2019 08:35:54 11/07/19 20 11/07/2019 CMP, serum or plasm a GFR 55 >60- low GFR REFER ENCE RANGE : =>60 ML/OR N/1.7 3M2 CALCU LATIO N BASED ON EQUAT ION MODIF ICATI ON OF DIET IN RENAL DISEA SE (MDRD ) THE MDRD GFR FORMU LA IS VALID ONLY FOR ADULT S BETWE EN AGES 18 AND [address] [facility] ([facility]) [address], [place], [address], 11/07/2019 08:35:54 11/07/1911/07/2019 CMP, serum or plasm a glob 3.5 Not Available [facility] ([facility]) [address], [place], [address], 11/07/2019 08:35:54 11/07/1911/07/2019 CMP, serum or plasm a osmo 299.4 275-[address] [facility]) [address], [place], [address], 11/07/2019 08:35:54 11/07/1911/07/2019 CMP, serum or plasm a protein 7.3 g/dL 6.4-8. [address] [facility]) [address], [place], [address], 11/07/2019 08:35:54 11/07/1911/07/2019 CMP, serum or plasm a SGOT 32 U/L 10-37 Not Available [facility] ([facility]) [address], [place], [address], 11/07/2019 08:35:54 11/07/19 20 11/07/2019 CMP, serum or plasm a SGPT 52 U/L 14-59 Not Available [facility] ([facility]) [address], [place], [address], 11/07/2019 08:35:54 11/07/19 20 11/07/2019 TSH, serum or plasm a TSH 4.157 ulu/m L 0.36-[address] [facility]) [address], [place], [address], 11/07/2019 08:35:55 11/07/19 20 11/07/2019 T4, free, serum T4 free 0.96 NG/dL 0.76-[address] [facility]) [address], [place], [address], 11/07/2019 08:35:56 02/04/20 20 02/04/2020 rapid SARS CoV + SARS CoV 2 Ag, QL IA, respi rator y speci men covid 19 antigen NEGATI VE negati ve Negat surinder resul ts from patie nts with sympt om onset beyon d five days shoul d be treat ed as presu mptiv e and confi rmed with a molec ular assay , if neces bernice for patie nt manag ement . Negat surinder resul ts do not rule out Covid 19 and shoul d not be used as the sole basis for treat ment or patie nt manag ement decis ions, inclu ding infec tion contr ol decis ions. Negat surinder resul ts shoul d be consi dered in the maria teresa xt of a patie nt's recen t expos ures, histo ry and the prese nce of clini juan signs and sympt oms consi stent with Covid 19. This test (Quid el SARS Antig en PJ) has been autho rized by the FDA under an Emerg ency Use Autho rizat ion (EUA) for use by autho rized labor atory ies. Not Available [facility]) [address], [place], [address], 02/04/2020 10:35:34 09/17/19 21 09/16/2020 CBC w/ auto diff white blood cell 7.2 10*3/ uL 4.8-[address] [facility] (Lab Orders) [address], [place], [address], 09/16/2020 07:59:09 09/17/19 21 09/16/2020 CBC w/ auto diff red blood cell 4.16 10*6/ uL 4.20-5 [address] [facility] ([facility]) [address] [address] [place], [address], 09/16/2020 07:59:09 09/17/19 21 09/16/2020 CBC w/ auto diff hemoglobin 13.6 g/dL 12.0-[address] [facility] (Lab Orders) [address], [place], [address], 09/16/2020 07:59:09 09/17/19 21 09/16/2020 CBC w/ auto diff hematocrit 40.2 % 37.0-[address] [facility] ([facility]) [address] [address], [place], [address], 09/16/2020 07:59:09 09/17/19 21 09/16/2020 CBC w/ auto diff MCV 96.6 fL 81.0-[address] [facility] (Lab Orders) [address] [address], [place], [address], 09/16/2020 07:59:09 09/17/19 21 09/16/2020 CBC w/ auto diff MCH 32.7 pg 27.0-3 [address] [facility] (Lab Orders) [address] [address] [place] [address], [address], 09/16/2020 07:59:09 09/17/19 21 09/16/2020 CBC w/ auto diff MCHC 33.8 g/dL 33.0-[address] [facility] (Lab Orders) [address], [place], [address], 09/16/2020 07:59:09 09/17/19 21 09/16/2020 CBC w/ auto diff RDW 12.1 % 11.5-[address] [facility] (Lab Orders) [address] [place] [address] [address], [place], [address], 09/16/2020 07:59:09 09/17/19 21 09/16/2020 CBC w/ auto diff platelet count 269 10*3/ uL 130-[address] [facility] (Lab Orders) [address] [place] [address] [address], [place], [address], 09/16/2020 07:59:09 09/17/19 21 09/16/2020 CBC w/ auto diff MPV 10.2 fL 7.4-[address] [facility] (Lab Orders) [address] [place] [address] [address], [place], [address], 09/16/2020 07:59:09 09/17/19 21 09/16/2020 CBC w/ auto diff neutrophil percent 53.6 % 43.0-[address] [facility] (Lab Orders) [address] [place] [address] [address], [place], [address], 09/16/2020 07:59:09 09/17/19 21 09/16/2020 CBC w/ auto diff ly% 33.1 % 16-50 Not Available [facility] (Lab Orders) [address] [address] [place], [address], 09/16/2020 07:59:09 09/17/19 21 09/16/2020 CBC w/ auto diff monocytes % 10.4 % 5.5-[address] [facility] (Lab Orders) [address] [facility] [address], [place], [address], 09/16/2020 07:59:09 09/17/19 21 09/16/2020 CBC w/ auto diff eosinophil % 1.9 % 0.9-5. [address] [facility] (Lab Orders) [address] [place] [address] [address], [place], [address], 09/16/2020 07:59:09 09/17/19 21 09/16/2020 CBC w/ auto diff ba% 0.7 % 0.2-1. [address] [facility] (Lab Orders) [address] [place] [address] [address], [place], [address], 09/16/2020 07:59:09 09/17/19 21 09/16/2020 CBC w/ auto diff neutrophil absolute number 3.8 10*3/ uL 2.2-4. [address] [facility] (Lab Orders) [address] [place] [address] [address], [place], [address], 09/16/2020 07:59:09 09/17/19 21 09/16/2020 CBC w/ auto diff lymphocytes absolute number 2.4 10*3/ uL 1.3-2. [address] [facility] (Lab Orders) [address] [place] [address] [address], [place], [address], 09/16/2020 07:59:09 09/17/19 21 09/16/2020 CBC w/ auto diff monocytes absolute number 0.8 10*3/ uL 0.3-0. [address] [facility] (Lab Orders) [address] [place] [address] [address], [place], [address], 09/16/2020 07:59:09 09/17/19 21 09/16/2020 CBC w/ auto diff eosinophil absolute number 0.1 10*3/ uL 0.0-0. [address] [facility] (Lab Orders) [address], [address], 09/16/2020 07:59:09 09/17/19 21 09/16/2020 CBC w/ auto diff basophils absolute number 0.1 10*3/ uL 0.0-0. [address] [facility] (Lab Orders) [address], [address], 09/16/2020 07:59:09 09/17/19 21 09/16/2020 CMP, serum or plasm a sodium 145 mmol/ L 136-[address] [facility] [address] [place], [address], 09/16/2020 08:17:00 09/17/1909/16/2020 CMP, serum or plasm a potassium 3.9 mmol/ L 3.5-5. [address] [facility] Orders[facility] [address], [address], 09/16/2020 08:17:00 09/17/19 21 09/16/2020 CMP, serum or plasm a chloride 108 mmol/ L 98-[address] [facility] [address] [place], [address], 09/16/2020 08:17:00 09/17/19 21 09/16/2020 CMP, serum or plasm a C O2 serum 28.3 mmol/ L 21-[address] [facility] (Lab Orders) [address] [place], [address], 09/16/2020 08:17:00 09/17/19 21 09/16/2020 CMP, serum or plasm a BUN 23 mg/dL 7-18 high Not Available [facility] (Lab Orders) [address] [place], [address], 09/16/2020 08:17:00 09/17/19 09/16/2020 CMP, serum or plasm a glucose serum 88 mg/dL 74-[address] [facility] (Lab Orders) [address] [address], [place], [address], 09/16/2020 08:17:00 09/17/1909/16/2020 CMP, serum or plasm a creatinine blood 0.8 mg/dL 0.6-1. [address] [facility] (Lab Orders) [address] [place] [address] [address], [address], 09/16/2020 08:17:00 09/17/1909/16/2020 CMP, serum or plasm a A/G 1.09 1.4-2. [address] [facility] (Lab Orders) [address] [place] [address] [address], [place], [address], 09/16/2020 08:17:00 09/17/1909/16/2020 CMP, serum or plasm a agap 8.7 7-16 Not Available [facility] (Lab Orders) [address] [facility] [address], [place], [address], 09/16/2020 08:17:00 09/17/1909/16/2020 CMP, serum or plasm a albumin 3.7 g/dL 3.4-5. [address] [facility] (Lab Orders) [address] [place] [address] [address], [address], 09/16/2020 08:17:00 09/17/1909/16/2020 CMP, serum or plasm a alkaline phosphatase 85 U/L 46-[address] [facility] (Lab Orders) [address] [address], [address], 09/16/2020 08:17:00 09/17/1909/16/2020 CMP, serum or plasm a total bilirubin 0.4 mg/dL .2-1.[address] [facility] (Lab Orders) [address] [place] [address] [address], [place], [address], 09/16/2020 08:17:00 09/17/19 21 09/16/2020 CMP, serum or plasm a BUN/cr 28.8 12-20 high Not Available [facility] (Lab Orders) [address], [place], [address], 09/16/2020 08:17:00 09/17/19 21 09/16/2020 CMP, serum or plasm a calcium 8.4 mg/dL 8.5-10 .1 low Not Available [facility] [address], [place], [address], 09/16/2020 08:17:00 09/17/19 21 09/16/2020 CMP, serum or plasm a GFR 79 60- REFER ENCE RANGE S: [place] ge GFR for Healt hy Adult s: >60 mL/mi n/1.7 3 m Chron ic Kidne y Disea se: 15 - 60 mL/mi n/1.7 3 m Kidne y Failu re: <15 mL/mi n/1.7 3 m MDRD study equat ion hasn' t been valid ated in child tracy <18 yrs of age, pregn ant women , the elder ly >85 yrs of age, or in some racia l or ethni c subgr oups, suc as Hispa nics. Outsi de the valid ated brittney eters , estim ated GFR is less accur ate requi ring clini juan judgm ent on a case by case basis . Clini juan inter preta tion for other races and ages must be made by the clini yolette . Futhe rmore , any of th e limit ation s with the use of serum creat inine relat ed to nutri jeffy l statu s o r medic ation usage hasn' t accou nted for the MDRD Study equat ion. For perso ns < 18 yrs of age, a pedia tric GFR calcu lator can be locat ed on the F websi te: https ://dmitry w.orlin curtis.o rg/pr ofess ional s/kdo qi/gf r_cal culat or Not Available [facility] (Lab Orders) [address], [place], [address], 09/16/2020 08:17:00 09/17/19 21 09/16/2020 CMP, serum or plasm a glob 3.4 g/dL 2.0-3. [address] [facility] (Lab Orders) [address] [place], [place] [address]pamela [address], [address], 09/16/2020 08:17:00 09/17/19 21 09/16/2020 CMP, serum or plasm a osmo 303.1 275-[address] [facility] (Lab Orders) [address] [place], [place] [address]pamela [address], [address], 09/16/2020 08:17:00 09/17/1909/16/2020 CMP, serum or plasm a protein 7.1 g/dL 6.4-8. [address] [facility] (Lab Orders) [address] [place], [place] [address]pamela [address], [address], 09/16/2020 08:17:00 09/17/1909/16/2020 CMP, serum or plasm a SGOT (AST) 23 U/L 10-37 Not Available [facility] (Lab Orders) [address] [place] [address] [address], [address], 09/16/2020 08:17:00 09/17/1909/16/2020 CMP, serum or plasm a SGPT (ALT) 46 U/L 14-59 Not Available [facility] (Lab Orders) [address] [place] [address] [address], [address], 09/16/2020 08:17:00 09/17/1909/16/2020 nmr lipop rofil e, serum cholesterol 172 mg/dL 0-[address] [facility] (Lab Orders) [address] [place] [address] [address], [address], 09/16/2020 08:17:02 09/17/19 21 09/16/2020 nmr lipop rofil e, serum chol/HDL 3.7 -4.4 Not Available [facility] (Lab Orders) [facility], [place], [address], 09/16/2020 08:17:02 09/17/19 21 09/16/2020 nmr lipop rofil e, serum HDL cholesterol 46 mg/dL 39-999 99 CHOL/ HDL Ratio refer ence range ----- - < 4.4 HDL josé luis stero l refer ence range ----- > or = 40 mg/dl LDL josé luis stero l refer ence range ----- < 130 mg/dl RESUL TS FOR LDL JOSÉ LUIS STERO L AND CHOL/ HDL CHOL RATIO ARE CALCU LATIO NS DM 6-- [address] [facility] (Lab Orders) [address] [place] [address] 64, [place], [address], 09/16/2020 08:17:02 09/17/19 21 09/16/2020 nmr lipop rofil e, serum LDL chol 82 mg/dL -130 Not Available [facility] (Lab Orders) [address] [place] [address] 64, [place], [address], 09/16/2020 08:17:02 09/17/19 21 09/16/2020 nmr lipop rofil e, serum triglyceride s 221 mg/dL 40-[address] [facility] (Lab Orders) [address] [place] [address] 64, [place], [address], 09/16/2020 08:17:02 09/17/19 21 09/16/2020 TSH, 2nd Gener ation , QN, serum or plasm a TSH 2.15 ulu/m L 0.36-[address] [facility] (Lab Orders) [address] [place] [address] 64, [place], [address], 09/16/2020 08:17:04 09/17/19 21 09/16/2020 T4, free, serum T4 free 0.92 NG/dL 0.76-[address] [facility] (Lab Orders) [address], [place], [address], 09/16/2020 08:17:06 09/17/19 21 09/17/2020 vitam in B12, serum vitamin B12 912 pg/mL 232-12 45 Perfo rmed at: [facility] [address] [place], [place] [id number] Lab Direc tor: Timoteo ahyes PhD, Phone : [phone] [facility] (Lab Orders) [address], [place], [address], 09/17/2020 07:11:28 09/17/19 21 09/17/2020 vitam in D, 25-hy droxy , total , serum vitamin D, 25-hydroxy 33.4 NG/mL 30.0-1 00.0 Vitam in D defic iency has been defin ed by the Insti tute of Medic ine and an Endoc rine Socie ty pract ice guide line as a level of serum 25-OH vitam in D less than 20 ng/mL (1,2) . The Endoc rine Socie ty went on to furth er defin e vitam in D insuf ficie ncy as a level betwe en 21 and 29 ng/mL (2). 1. IOM (Inst itute of Medic ine). 2010. Dieta ry refer ence dominic es for calci um and D. Ivon julien [place]: The Natio nal [employer] . 2. Stacia cardenas MF, Dave lewis [place], Jeffrey off-F errar i WYLIE, et al. Evalu ation , treat ment, and preve ntion of vitam in D defic iency : an Endoc rine Socie ty clini juan pract ice guide line. JCEM. 2010; 96(7) :1911 -30. Perfo rmed at: [facility] [address] [facility], [place] [address] 2319 Lab Direc tor: Timoteo hayes PhD, Phone : [phone] [facility] (Lab Orders) [address], [place], [address], 09/17/2020 08:14:53 10/04/19 19 10/01/2018 MAMMO , scree toribio, digit al, bilat eral [facility] [address] [place] [address] [phone] IMAGBENNIE Martinez REPORT __ NAME: MARIAELENA CASILLAS ROOM #: : 1965 ACCOUN T #: [id number] BED #: AGE: 53 Y PATIEN T TYPE: EMANUEL ORDER Date/T alexa: 12:10: 53 SEX: F ORDER #: ACCESS ION #: EXAM DESCRI PTION: 100 [id number] DIGITA L BILATE RAL SCRN MAMMO Dictat ed By: Cristofer Irwin Physic fatimah: MODE DIAMOND Attend ing Physic fatimah: MODE DIAMOND y Care Physic fatimah: MODE DIAMOND __ PROCED URE: DIGITA L BILATE RAL SCRN MAMMO CLINIC AL INDICA TION: Routin e screen ing COMPAR ZEV: Prior studie s back to 2010 FINDIN GS: Scatte red fibrog landul ar densit ies. No develo ping mass or malign ant calcif icatio ns. Stable intram ammary lymph node upper outer right breast . IMPRES AMANDA: No eviden ce of malign marbella.B I-RADS Catego ry 2: Benign . Additi onal Inform ation Regard ing Mammog leon: [employer] e [employer] Radiol ogy Recomm endati ons for Breast Cancer Screen ing For Women Of Averag e Risk* Women age 40 and older (who have no sympto ms) should have an annual mammog mushtaq. Screen ing with mammog nataliia should contin ue as long as the woman is in good health and is willin g to underg o additi onal testin g (inclu ding biopsy ) if an abnorm ality is detect ed. *If you are or may be at high risk for breast cancer , you should speak with your doctor to decide if additi onal screen ing tests might be right for you. A negati ve Mammog nataliia report should not discou rage follow -up or biopsy of a clinic ally signif icant findin g and/or abnorm ality. Dense breast tissue may obscur e small neopla sms. The curren t mammog leon are interp reted in conjun ction with R2 Shanique abbasi CAD Page 1 of 2 IMAGIN G REPORT __ NAME: MARIAELENA CASILLAS ROOM #: : 1965 ACCOUN T #: [id number] BED #: AGE: 53 Y PATIEN T TYPE: EMANUEL ORDER Date/T alexa: 19 12:10: 53 SEX: F ORDER #: ACCESS ION #: EXAM DESCRI PTION: 100 [id number] DIGITA L BILATE RAL SCRN MAMMO __ system . Create d and electr onical ly signed by Cristofer jc on 2018 10:46: 10. Page [address] [facility] (Op Registration) [address], [place], [address], 10/03/2018 12:56:27 10/16/19 19 10/12/2018 XR, foot, 3 or more view [facility] [address] [place] [address] [phone] FÉLIX Martinez REPORT __ NAME: MARIAELENA CASILLAS ROOM #: : 1965 ACCOUN T #: [id number] BED #: AGE: 52 Y PATIEN T TYPE: RAD ORDER Date/T alexa: 11:10: 48 SEX: F ORDER #: ACCESS ION #: EXAM DESCRI PTION: 100 [id number] FOOT 3 VIEWS Dictat ed By: Patrick Almendarez Orderi Physic fatimah: GATITO SWIFT Attend [facility] Physic fatimah: GATITO SWIFT Primnd y [facility] Physic fatimah: GATITO SWIFT __ PROCED URE: FOOT 3 VIEWS CLINIC AL INDICA TION: Left foot pain COMPAR ZEV: None FINDIN GS: Fronta l, latera l and obliqu e views of the left foot demons trates no eviden ce of acute fractu re. Fat planes are mainta ined. Small planta r calcan eal spurs noted. A small Achill es tendon enthes ophyte is also presen t. IMPRES AMANDA: No acute abnorm ality of the left foot. Create d and electr onical ly signed by Patrick Almendarez on 2018 10:08: 18. Page [email or web address] [facility] (Op Registration) [address] [facility] [address], [place], [address], 11/07/2018 12:40:45 11/14/19 20 11/11/2019 MAMMO , scree toribio, digit al, bilat eral [facility] [address] [place] [address] [phone] FÉLIX G REPORT __ NAME: MARIAELENA CASILLAS ROOM #: : 1965 ACCOUN T #: [id number] BED #: AGE: 53 Y PATIEN T TYPE: EMANUEL ORDER Date/T alexa: 20 09:59: 59 SEX: F ORDER #: ACCESS ION #: EXAM DESCRI PTION: 100 [id number] DIGITA L BILATE RAL SCRN MAMMO Dictat ed By: Vitaliy Sullivan Physic fatimah: TIFFANY HACKETT Attend ing Physic fatimah: TIFFANY HACKETT Primar y Care Physic fatimah: TIFFANY HACKETT __ PROCED URE: DIGITA L BILATE RAL SCRN MAMMO CLINIC AL INDICA TION: Annual screen ing mammog mushtaq COMPAR ZEV: 2019 and 2016 FINDIN GS: Exam perfor med using CAD. Scatte red areas of fibrog landul ar densit y are again seen within each breast . The overal l patter n is stable . When compar ed with the prior exams, there has been no signif icant change in the appear ance of either breast . No spicul ated mass or malign ant appear ing microc alcifi cation identi fied in either breast . Faint, benign -appea ring calcif icatio ns are again noted bilate rally. Intram ammary lymph node is again seen in the upper outer right breast . Bilate ral axilla ry lymph nodes are also presen t. IMPRES AMANDA: Stable benign mammog mushtaq. BI-RAD S Catego ry 2: Benign . Additi onal Inform ation Regard ing Mammog leon: [employer] an Colleg e of Radiol ogy Recomm endati ons for Breast Cancer Screen ing For Women Of Averag e Risk* Women age 40 and older (who have no sympto ms) should have an annual mammog mushtaq. Screen ing with mammog nataliia should contin ue as long as the woman is in good health and is willin g to underg o additi onal testin g (inclu ding biopsy ) if an abnorm ality is detect ed. Page 1 of 2 IMAGIN G REPORT __ NAME: MARIAELENA CASILLAS ROOM #: : 1965 ACCOUN T #: [id number] BED #: AGE: 53 Y PATIEN T TYPE: EMANUEL ORDER Date/T alexa: 20 09:59: 59 SEX: F ORDER #: ACCESS ION #: EXAM DESCRI PTION: 100 [id number] DIGITA L BILATE RAL SCRN MAMMO __ *If you are or may be at high risk for breast cancer , you should speak with your doctor to decide if additi onal screen ing tests might be right for you. A negati ve Mammog nataliia report should not discou rage follow -up or biopsy of a clinic ally signif icant findin g and/or abnorm ality. Dense breast tissue may obscur e small neopla sms. The curren t mammog leon are interp reted in conjun ction with [employer] CAD system . Create d and electr onical ly signed by Vitaliy Sullivan on 2019 10:16: 51. Page [id number] [facility] (Op Registration) [address], [place], [address], 11/15/2019 10:35:28 01/20/20 20 01/20/2020 XR, foot, 3 or more view [facility] [address] [place] [address] IMAGIN G REPORT NAME: MARIAELENA CASILLAS ROOM #: : 1965 ACCOUN T #: [id number] BED #: AGE: 54 Y PATIEN T TYPE: RAD EXAM DATE/T ALEXA: 2019 14:54: 04 SEX: F ORDER #: ACCESS ION #: EXAM DESCRI PTION: [id number] FOOT 3 VIEWS DICTAT ED BY: AMARA ZAPATA PHYSIC FATIMAH: MJ RAND ATTEND ING PHYSIC FATIMAH: MJ RAND Y CARE PHYSIC FATIMAH: TIFFANY HACKETT Histor y: NKI, has been hurtin g since summer feels like a marble in the bottom of right foot Compar zev: None Techni que: 3 views of the right foot Interp retati on: There is no fractu re or disloc ation. There are calcan eal enthes ophyte s. Impres amanda: Calcan eal spurs. Create d and Electr onical ly Signed by: Amara Zapata MD on 2019 4:06 PM Page [address] of [address] (Op Registration) [address], [place], [address], 01/20/2020 20:25:28 09/25/19 21 09/24/2020 DEXA [facility] [address] [place] [address] FÉLIX Martinez REPORT NAME: MARIAELENA CASILLAS ROOM #: : 1965 ACCOUN T #: [id number] BED #: AGE: 54 Y PATIEN T TYPE: RAD EXAM DATE/T ALEXA: 2020 15:55: 31 SEX: F ORDER #: ACCESS ION #: EXAM DESCRI PTION: [id number] 00 XR DEXA SCAN DICTAT ED BY: BOB MOREAU PHYSIC FATIMAH: TIFFANY HACKETT [facility] PHYSIC FATIMAH: TIFFANY HACKETT Y CARE PHYSIC FATIMAH: LEWTIFFANY Indica tion: Screen ing for osteop orosis DEXA scan: Thelma oswald is up to 0.[address] deviat ions below young adult contro ls in the spine and up to 0.[address] deviat ions below young adult contro ls in the hips. Impres amanda: Thelma oswald is of normal bone minera lizati on with no fractu re risk per WHO criter ia. Create d and Electr onical ly Signed by: Bob sigala MD on 021 4:06 PM Page [address] [facility] (Imaging) [address] [place], [address], 09/25/2020 08:39:20 Result Notes Documentation Provider Name and Address Organization Details Recorded Time Xr, Foot, 3 Or More View : [address] [place] [address] IMAGING REPORT NAME: MARIAELENA DIA ROOM #: : 1965 BED #: AGE: 52 Y PATIENT TYPE: RAD ORDER Date/Time:10/12/2018 11:10:48 SEX: F ORDER #: ACCESSION #: EXAM DESCRIPTION: 100 [id number] FOOT 3 VIEWS Dictated By: Patrick Almendarez Ordering Physician: GATITO SWIFT Attending Physician: GATITO SWIFT Primary Care Physician: GATITO SWIFT PROCEDURE: FOOT 3 VIEWS CLINICAL INDICATION: Left foot pain COMPARISON: None FINDINGS: Frontal, lateral and oblique views of the left foot demonstrates no evidence of acute fracture. Fat planes are maintained. Small plantar calcaneal spurs noted. A small Achilles tendon enthesophyte is also present. IMPRESSION: No acute abnormality of the left foot. Created and electronically signed by Patrick Almendarez on 10/15/2018 10:08:18. Page 1 of 1 GATITO SWIFT MD [address] [facility] [place], [address], [place] [facility] 11/07/2018 12:40:45 Mammo, Screening, Digital, Bilateral : [facility] [address] [facility] [address] [place] [id number] IMAGING REPORT NAME: MARIAELENA DIA ROOM #: : 1965 BED #: AGE: 53 Y PATIENT TYPE: EMANUEL ORDER Date/Time:11/11/2019 09:59:59 SEX: F ORDER #: ACCESSION #: EXAM DESCRIPTION: 100 [id number] DIGITAL BILATERAL SCRN MAMMO Dictated By: Vitaliy Sullivan Ordering Physician: TIFFANY HACKETT Attending Physician: TIFFANY HACKETT Primary Care Physician: TIFFANY HACKETT PROCEDURE: DIGITAL BILATERAL SCRN MAMMO CLINICAL INDICATION: Annual screening mammogram COMPARISON: 2018 and 2015 FINDINGS: Exam performed using CAD. Scattered areas of fibroglandular density are again seen within each breast. The overall pattern is stable. When compared with the prior exams, there has been no significant change in the appearance of either breast. No spiculated mass or malignant appearing microcalcification identified in either breast. Faint, benign-appearing calcifications are again noted bilaterally. Intramammary lymph node is again seen in the upper outer right breast. Bilateral axillary lymph nodes are also present. IMPRESSION: Stable benign mammogram. BI-RADS Category 2: Benign. Additional Information Regarding Mammograms: [employer] Recommendations for Breast Cancer Screening For Women Of Average Risk* Women age 40 and older (who have no symptoms) should have an annual mammogram. Screening with mammography should continue as long as the woman is in good health and is willing to undergo additional testing (including biopsy) if an abnormality is detected. Page 1 of 2 IMAGING REPORT NAME: MARIAELENA DIA ROOM #: : 1965 BED #: AGE: 53 Y PATIENT TYPE: [facility] ORDER Date/Time:11/11/2019 09:59:59 SEX: F ORDER #: ACCESSION #: EXAM DESCRIPTION: 100 [id number] DIGITAL BILATERAL SCRN MAMMO *If you are or may be at high risk for breast cancer, you should speak with your doctor to decide if additional screening tests might be right for you. A negative Mammography report should not discourage follow-up or biopsy of a clinically significant finding and/or abnormality. Dense breast tissue may obscure small neoplasms. The current mammograms are interpreted in conjunction with R2 [employer] CAD system. Created and electronically signed by Vitaliy Sullivan on 11/14/2019 10:16:51. Page 2 of 2 Jyoti Xiong [place] [facility] 11/15/2019 10:35:28 Xr, Foot, 3 Or More View : [facility] [address] [place] [address] IMAGING REPORT NAME: MARIAELENA DIA ROOM #: : 1965 BED #: AGE: 54 Y PATIENT TYPE: RAD EXAM DATE/TIME: 01/20/2020 14:54:04 SEX: F ORDER #: ACCESSION #: EXAM DESCRIPTION: [id number] FOOT 3 VIEWS DICTATED BY: AMARA ZAPATA ORDERING PHYSICIAN: MICHAEL VASQUEZ ATTENDING PHYSICIAN: MICHAEL VASQUEZ PRIMARY CARE PHYSICIAN: TIFFANY HACKETT History: NKI, has been hurting since summer feels like a marble in the bottom of right foot Comparison: None Technique: 3 views of the right foot Interpretation: There is no fracture or dislocation. There are calcaneal enthesophytes. Impression: Calcaneal spurs. Created and Page 1 of [address] NP [address] [facility] [place], [address], [facility] 01/20/2020 20:25:28 Dexa : [facility] [address] [place] [address] IMAGING REPORT NAME: MARIAELENA DIA ROOM #: : 1965 BED #: AGE: 54 Y PATIENT TYPE: RAD EXAM DATE/TIME: 09/24/2020 15:55:31 SEX: F ORDER #: ACCESSION #: EXAM DESCRIPTION: [id number] XR DEXA SCAN DICTATED BY: JOSE FRY ORDERING PHYSICIAN: TIFFANY HACKETT ATTENDING PHYSICIAN: TIFFANY HACKETT PRIMARY CARE PHYSICIAN: TIFFANY HACKETT Indication: Screening for osteoporosis DEXA scan: Patient is up to 0.5 standard deviations below young adult controls in the spine and up to 0.4 standard deviations below young adult controls in the hips. Impression: Patient is of normal bone mineralization with no fracture risk per WHO criteria. Created and Page 1 of [address] [facility] [place], [address], [facility] 09/25/2020 08:39:20 Problems Name Problem SNOMED Code Status Onset Date Resolution Date Notes Provider Name and Address Organization Details Recorded Time Acute sinusitis 61476422 Completed 02/26/2018 ABEL [address] [place], [address] , [facility] 8 08:20:26 Loss of hair 939186588 Completed 11/07/2019 Tiffany Hackett, ABEL [address] [facility] [place], [address] , [facility] 0 08:30:18 Muscle fatigue 86804722 Completed 02/26/2018 [address] NP [address] [facility], [address] , [facility] 8 08:20:47 Pain in left foot 95626630984 9107 Completed 201611/07/[address] [facility], [address] , [facility] 0 08:30:12 Bronchiti s 19709378 Completed 02/26/2018 [address] NP [address] [facility] [place], [address] , [facility] 8 08:20:34 Sinusitis 11182197 Completed 02/26/2018 [address] NP [address] [place], [address] , [facility] 8 08:20:37 Fever 724546802 Completed 02/26/2018 [address] NP [address] [place], [address] , [facility] 8 08:20:39 Neoplasm of uncertain behavior of skin 80681644 Completed 11/07/[address] NP [address] [place], [address] , [facility] 0 08:30:16 Hypertrop hy of nasal turbinate s 40834937 Active Not Available [facility] 3 03:00:39 Allergic rhinitis 12761827 Active Dante Kuhn APRN [address] [place], [address] , [facility] 4 09:41:57 Hypothyro idism 84648900 Active Tiffany Hackett NP [address] [place], [address] , [facility] 6 13:34:27 Hyperlipi demia 66548922 Active Dante Kuhn APRN [address] [place], [address] , [facility] 4 14:51:23 Gastroeso phageal reflux disease 347201599 Active Dante uKhn APRN [address] [place], [address] , [facility] 4 09:41:57 Fatigue 45398366 Completed 11/07/2019 [address] NP [address] [place], [address] , [facility] 0 08:30:35 Problem Notes None recorded. Procedures Surgical History Date Name Laterality Status Provider Name and Address Organization Details Recorded Time 0 Blank Procedure Template completed Gary Guerra MD [address] [place], [address], [facility] 05/22/2019 15:04:28 3 General Biopsy completed Gary Guerra MD [address] [place], [address], [facility] 11/28/2012 17:21:40 1 STUDENT OFFICER Surgery completed Francie Frankie [facility] 11/12/2012 15:21:17 STUDENT OFFICER Surgery completed Kailee Bullard lpn [facility] 10/15/2018 09:01:34 Imaging Results None recorded. Procedure Notes None recorded. Medical Equipment None Reported. Allergies No known drug allergies Medications Name Sig Start Date Stop Date Status Note LastModified by Organization Details LastModified Time pantoprazol e sodium 40 mg tbec 11/05 completed Not Available Not Available Not Available synthroid 50 mcg tabs 11/05 completed Not Available Not Available Not Available fluconazole 150 mg tabs 11/05 completed Not Available Not Available Not Available naproxen 500 mg tabs 11/05 completed Not Available Not Available Not Available penicillin v potassium 500 mg tabs 11/05 completed Not Available Not Available Not Available amoxicillin 500 mg capsule 02/23 completed Not Available Not Available Not Available promethazin e-DM 6.25 mg-15 mg/5 mL oral syrup Take 5 mL every 6 hours by oral route. active Not Available Not Available No t Available prednisone 10 mg tablet 11/05 completed Not Available Not Available Not Available fluconazole 150 mg tablet Take 1 tablet(s) by oral route as directed 10/15 completed Not Available Not Available Not Available clarithromy dalia 500 mg tablet Take 1 tablet every 12 hours by oral route for 14 days. 02/23 completed Not Available Not Available Not Available hydrocodone 5 mg-acetamin ophen 325 mg tablet 10/15 completed Not Available Not Available Not Available penicillin V potassium 500 mg tablet Take 1 tablet twice a day by oral route for 10 days. 10/15 completed Not Available Not Available Not Available sulfamethox azole 800 mg-trimetho prim 160 mg tablet 04/21 completed Not Available Not Available Not Available spironolact one 25 mg tablet Take 1 tablet every day by oral route. 10/15 completed Not Available Not Available Not Available amoxicillin 500 mg tablet Take 1 tablet twice a day by oral route for 14 days. 02/23 completed Not Available Not Available Not Available pantoprazol e 20 mg tablet,deanna yed release Take 1 tablet twice a day by oral route for 14 days. 10/15 completed Not Available Not Available Not Available Synthroid 25 mcg tablet TAKE 1 TABLET DAILY 10/15 completed Not Available Not Available Not Available benzonatate 100 mg capsule Take 1 capsule 3 times a day by oral route. active Not Available Not Available No t Available hydrocortis one 1 % topical cream active Not Available Not Available Not Available doxycycline monohydrate 100 mg capsule 05/14 completed Not Available Not Available Not Available pantoprazol e 40 mg tablet,deanna yed release Take 1 tablet twice a day by oral route for 90 days. 2020 active Not Available Not Available Not Avai lable Lincocin 300 mg/mL injection solution Take 1 mL by injection route. 02/23 completed Not Available Not Available Not Available promethazin e 25 mg tablet 11/05 completed Not Available Not Available Not Available Synthroid 50 mcg tablet TAKE 1 TABLET BY MOUTH DAILY active Not Available Not Available No t Available norethindro ne acetate 5 mg tablet 10/15 completed Not Available Not Available Not Available dexamethaso ne sodium phosphate 4 mg/mL injection solution Take 1 mL by injection route. 06/07 completed Not Available Not Available Not Available Transderm-S classified copy control clerk 1 mg over 3 days transdermal patch 10/15 completed Not Available Not Available Not Available Nasonex 50 mcg/actuati on Douglas Douglas 2 sprays every day by intranasa l route as directed for 30 days. active Not Available Not Available No t Available methylpredn isolone 4 mg tablets in a dose pack 09/14 completed Not Available Not Available Not Available ondansetron 4 mg disintegrat ing tablet 10/15 completed Not Available Not Available Not Available fluticasone propionate 50 mcg/actuati on nasal spray,suspe nsion Douglas 1 spray every day by intranasa l route. 09/14 completed Not Available Not Available Not Available Diflucan 200 mg tablet Take 1 tablet every day by oral route for 1 day. 02/23 completed Not Available Not Available Not Available doxycycline hyclate 100 mg tablet TAKE 1 TABLET BY MOUTH TWICE DAILY FOR 14 DAYS 11/05 completed Not Available Not Available Not Available naproxen 500 mg tablet TAKE ONE TABLET BY MOUTH TWO TIMES A DAY 09/14 completed Not Available Not Available Not Available amoxicillin 875 mg-potassiu m clavulanate 125 mg tablet Take 1 tablet twice a day by oral route for 10 days. 06/07 completed Not Available Not Available Not Available amoxicillin 500 mg-potassiu m clavulanate 125 mg tablet TAKE ONE TABLET BY MOUTH EVERY 12 HOURS FOR 10 DAYS 06/07 completed Not Available Not Available Not Available Fish Oil active Not Available Not Avai lable Not Available Zyrtec 10 mg capsule Take 10 mg by oral route. 11/05 completed Not Available Not Available Not Available Dexilant 60 mg capsule, delayed release Take 1 capsule every day by oral route for 30 days. 2012 active Not Available Not Available Not Avai lable Dexilant 30 mg capsule, delayed release Take 1 capsule every day by oral route. 2013 active Not Available Not Available Not Avai lable Suprep Bowel Prep Kit 17.5 gram-3.13 gram-1.6 gram oral solution take as directed 04/21 completed Not Available Not Available Not Available Vitals Date Recorded Body height Body mass index (BMI) Body weight Respiratory rate Heart rate Oxygen saturation Oxygen saturation in Arterial blood by Pulse oximetry Body temperature Systolic And Diastolic Provider Name and Address Organization Details Last Updated DateTime 9 165.1 cm 29.7 kg/m2 92822.8 8 g 16 /min 102 /min 99 % 99 % 100.1 [degF] 118/78 mm[Hg] Maral Poole [facility] 9 13:26:29 Date Recorded Body height Body mass index (BMI) Body weight Provider Name and Address Organization Details Last Updated DateTime 05/22/2019 165.1 cm 30.3 kg/m2 24617.81 g [facility] 05[facility]/2019 14:49:01 Date Recorded Body height Body mass index (BMI) Body weight Respiratory rate Body temperature Heart rate Oxygen saturation Oxygen saturation in Arterial blood by Pulse oximetry Systolic And Diastolic Provider Name and Address Organization Details Last Updated DateTime 1 165.1 cm 29.6 kg/m2 43831.4 4 g 18 /min 97.4 [degF] 78 /min 98 % 98 % 120/82 mm[Hg] Jyoti Xiong [facility] 1 15:31:34 Date Recorded Body height Body mass index (BMI) Body weight Systolic And Diastolic Provider Name and Address Organization Details Last Updated DateTime 10/15/2018 165.1 cm 30.3 kg/m2 73648.81 g 112/68 mm[Hg] [facility]2018 09:03:56 Date Recorded Body height Body mass index (BMI) Body weight Respiratory rate Heart rate Oxygen saturation Oxygen saturation in Arterial blood by Pulse oximetry Body temperature Systolic And Diastolic Provider Name and Address Organization Details Last Updated DateTime 0 165.1 cm 29.6 kg/m2 69774.4 4 g 18 /min 79 /min 98 % 98 % 98.5 [degF] 120/72 mm[Hg] Jyoti Xiong JOHANA [facility] 0 15:52:37 Social History Question Answer Notes LastModified by Organizat ion Details LastModified Time Tobacco Smoking Status Never Smoker Francie David weston, [facility] 11/12/2012 15:21:17 Do You Have An Advance Directive? No [email or web address] Information n ot available 11/06/2019 What Is Your Level Of Caffeine Consumption? None [email or web address] Information not available 11/06/2019 How Much Tobacco Do You Chew? None [email or web address] Information not available 11/06/2019 In The 14 Days Before Symptom Onset, Have You Had Close Contact With A Laboratory-confirm ed COVID-19 While That Case Was Ill? No [email or web address] Information n ot available 11/06/2019 If Patient Spent Time In [facility] - Does The Patient Live In [facility]? No [email or web address] Information not available 11/06/2019 In The 14 Days Before Symptom Onset, Have You Had Close Contact With A Person Who Is Under Investigation For COVID-19 While That Person Was Ill? No [email or web address] Information not available 11/06/2019 In The 14 Days Before Symptom Onset, Did The Patient Spend Time In [facility]? No [email or web address] Information not available 11/06/2019 Have You Been To An Area Known To Be High Risk For COVID-19? No [email or web address] Information not available 11/06/2019 What Type Of Diet Are You Following? REGULAR [email or web address] Information n ot available 11/06/2019 Which Illicit Or Recreational Drugs Have You Used? No Information not available 11/12/2012 Education 2 Year College Information not available 11/12/2012 Are There Any Guns Present In Your Home? No [email or web address] Information not available 11/06/2019 Marital Status Informatio n not available 11/12/2012 What Was The Date Of Your Most Recent Tobacco Screening? 09/14/2020 [email or web address] Information not available 09/14/2020 Seat Belts Used Routinely Yes Information not available 11/12/2012 Smoke Alarm In Home Yes Information not available 11/12/2012 How Much Tobacco Do You Smoke? No [email or web address] Information not available 11/06/2019 General Stress Level Low [email or web address] Information not available 11/06/2019 Do You Use Sunscreen Routinely? Yes Information not available 11/12/2012 How Many Years Have You Smoked Tobacco? 0 [email or web address] Information not available 11/06/2019 Sex: Female Functional Status Question Answer Note LastModified by Organizat ion Details LastModified Time What is your level of alcohol consumption? None Information not available 11/12/2012 Do you or have you ever used smokeless tobacco? 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 Never used electronic cigarettes [email or web address] Information not available 11/06/2019 What is your exercise level? Moderate Information not available 11/12/2012 Mental Status None recorded. Family History Relationship Description Onset Age of this Age Resolved Age Notes LastModified by Organization Details LastModified Time Mother Malignant neoplastic disease all (previ ously record ed as Cancer - Specif y) [email or web address] Not available 04/23/2014 11:39:59 Father Malignant neoplastic disease all (previ ously record ed as Cancer - Specif y) [email or web address] Not available 04/23/2014 11:39:59 Medical History Condition Response RHEUMATIC FEVER N STROKE N DIABETES N PROSTATE N ADD N RADIATION / CHEMOTHERAPY N EYE PROBLEMS N CAROTID BLOCKAGE N SEIZURES N DEPRESSION (INCLUDING POST ) N FEMALE PROBLEMS / INFECTIONS N BOWEL PROBLEMS N BACK / NECK PROBLEMS N HAVE YOU BEEN HOSPITALIZED OR SEEN IN [facility] ER IN THE PAST YEAR ? N MIGRAINES N THYROID DISEASE Y ATHEROSCLEROSIS N ULCERS N BREAST PROBLEMS N DIALYSIS N ADHD N HIV / AIDS N ANEURYSM N OSTEOPOROSIS N URINARY/BLADDER/KIDNEY PROBLEMS N ARTHRITIS N HEADACHES N USE OF BLOOD THINNERS N NO SIGNIFICANT PAST MEDICAL HISTORY N SKIN PROBLEMS N HIGH CHOLESTEROL N HEARTBURN / REFLUX Y BLOOD CLOTS N ASTHMA N HEPATITIS / LIVER DISEASE N PULMONARY DISEASE N GOUT N SLEEP DISORDER N HERPES N DEMENTIA N ALLERGIES N VARICOSITIES N VASCULAR DISEASE N DIZZINESS N NEUROPATHY N KIDNEY DISEASE N EAR PROBLEMS N LUNG DISORDER N HYPERTENSION N CARDIAC ARRHYTHMIA N CANCER: SPECIFY N ANXIETY DISORDER N ANEMIA/BLOOD DISORDER N PNEUMONIA N PULMONARY EMBOLISM N BRONCHITIS N HEART DISEASE N CORONARY ARTERY DISEASE N TUBERCULOSIS N Gynecological History Statement/Question Response Menses Monthly N If Post Menopausal, Age at Menopause 50 Current Control Method Sterilizati on Obstetrics History GPAL:G 2 P 2 0 0 2 Type Value Full Term 2 Living 2 Total 2 Immunizations Vaccine Type Date Status Note Provider Nam e and Address Organization Details Recorded Time COVID-19, mRNA, LNP-S, PF, 100 mcg/0.5mL dose or 50 mcg/0.25mL dose 04/07/2020 completed Jyoti Xiong LPN null, [facility] 09/14/2020 15:24:56 COVID-19, mRNA, LNP-S, PF, 100 mcg/0.5mL dose or 50 mcg/0.25mL dose 05/05/2020 completed Jyoti Xiong WEIGHT CONTROL LECTURER [facility], [facility] 09/14/2020 15:25:27 Past Encounters Encounter ID Performer Location Encounter Start Date Encounter Closed Date Diagnosis/Indication Diagnosis SNOMED-CT Code Diagnosis ICD10 Code Diagnosis Note [id number] Maria Isabel Alexander DO [facility] [address] [facility] [address] [facility] [address] [place] [address] 11/12/2012 14:28:38 11/12/2012 15:42:55 [id number] Gary Guerra MD [facility] [facility] [address] [facility] [address] [place] [address] 11/28/2012 15:02:58 11/28/2012 17:50:15 [id number] ALL Alvarez [facility] [address], [address] [place] [address] 04/23/2013 10:41:51 04/23/2013 12:34:05 Bronchitis 68525374 Sinusitis 67066370 Fever [id number] Dante Kuhn APRN [facility]_Imme diate Care [facility] [address], [address] [place] [address] 08/26/2013 09:00:28 08/26/2013 10:15:51 Hypothyroidism 59573738 Hyperlipidemia 94555564 Allergic rhinitis 16163849 Gastroesop hageal reflux disease 048505538 Screening mammography [id number] Tiffany Hackett NP [facility]view [facility] [address] [place] [address] 01/09/2014 09:01:51 01/09/2014 09:46:08 Influenza-like symptoms 769115647 Acute sinusitis 17407539 [id number] Amparo Webber, PUBLIC SAFETY OFFICER [facility]_Imme diate Care [facility] [address] [place] [address] 04/23/2014 10:58:09 04/23/2014 21:43:08 Acute sinusitis 85574635 [id number] Tiffany Hackett NP [facility] [address] 06/11/2014 14:50:14 06/11/2014 15:14:24 Hypothyroidism 90745451 [id number] Tiffany Hackett NP [facility]view [facility] [address] [place] [address] 11/02/2015 13:04:50 11/02/2015 14:43:51 Hypothyroidism 69553662 E03.9 [id number] Tiffany Hackett [facility]view [facility] [address] [place] [address] 08/31/2016 10:21:00 08/31/2016 10:45:29 Acute sinusitis 44965242 J01.90 Alopecia 98576549 L65.9 [id number] Gary Guerra MD [facility] [address] [facility] [address] [facility] [address] [facility] [address] [place] [address] 06/07/2017 11:26:28 06/07/2017 11:53:21 Neoplasm of uncertain behavior of skin of face 15182393 D48.5 Lesion has resolved after recent cryotherap y. Will observe. Allergic rhinitis 932225 04 J30.1 Continue antihistam ine. Suggested NSS and pt will obtain OTC. [id number] Tiffany Hackett NP [facility] [address] [place] [address] 02/23/2018 15:46:12 02/26/2018 11:44:33 Hypothyroidism 90891225 E03.9 Fatigue 03085212 R53.83 Pain of left thigh 76827 87335 82528 M79.652 [id number] Tiffany Hackett NP [facility]iberto villar [facility] [address] [place] [address] 05/14/2018 13:20:57 05/14/2018 16:00:55 Fever 248214317 R50.9 Streptococ juan sore throat 73882604 J02.0 [id number] GATITO SWIFT MD [facility]_[address] [place] [address] 10/15/2018 08:50:17 10/15/2018 14:01:56 Left Achilles tendinitis 1729683358 51492 M76.62 [id number] Gary Guerra MD [facility] [place] [address] 05/22/2019 14:46:28 06/05/2019 09:08:10 Multiple actinic keratoses 011015346 L57.0 Lesions appear to be consistent with actinic keratoses. We discussed treatment options she elected proceed with a cryotherap y treatment. Risks, benefits alternativ es to the procedure explained. [id number] ABEL Wood [facility] [address] [place] [address] 11/06/2019 15:36:40 11/07/2019 11:21:17 Adult health examination 853040159 Z00.00 Depression screening 171 512793 Z13.31 Finding of body mass index 441946752 Z68.29 Erosive esophagitis 4071 9004 K22.10 Hypothyroidism 92926740 E03.9 Allergic rhinitis 522245 04 J30.9 Hyperlipidemia 65177478 E78.5 Screening mammography 24 281603 Z12.31 [id number] ABEL Wood [facility] [address] [place] [address] 09/14/2020 15:14:41 09/15/2020 08:00:33 Adult health examination 791164853 Z00.00 Advanced Care Planning handout given Depression screening 171 895045 Z13.31 Finding of body mass index 623478251 Z68.29 Hypothyroidism 84583135 E03.9 Vitamin deficiency 23414 002 E56.9 Gastroesop hageal reflux disease 125205963 K21.9 Postmenopausal state 764 59721 Z78.0 Renewal of prescription 737681615 Z76.0 Health Concerns Section Related Observation LastModified by Organization Detai ls LastModified Time None Recorded Concern Status LastModified by Organization Details LastModified Time None Recorded Advance Directives Directive N: Payers Insurance Date Sequence Insurance Name Policy Number Policy Gonsales Covered Member ID Gonsales Member ID Guarantor Name 03/20/2024 1 [place] [id number] Mariaelena Dia [id number] Mariaelena Dia 03/20/2024 1 [place] [id number] Mariaelena Dia [id number] Mariaelena Dia 03/20/2024 1 [place] [id number] Mariaelena Dia [id number] Mariaelena Dia 03/31/2017 2 [place] [id number] Blake Dia [id number] Mariaelena Dia 06/15/2018 1 *SELF PAY* Chavo Dia 03/20/2024 1 [place] Maria[place] Dia [id number] Mariaelena Dia 11/02/2015 1 *SELF PAY* Cahvo Dia Notes Date Note Type Note Provider Name and Address Organization Details Recorded Time 05/14/2018 text/html Presents for acu te visit. C/o sore throat, fever, body aches. Denies nasal congestion or cough. Onset less than 24 hours. No known sick contacts. Non smoker. Tiffany Hackett, DATA ENTRY SUPERVISOR [address] [facility] [place], [address], [facility] 05/14/2018 13:58:18 10/15/2018 text/html Left heel pain f or last 2 years. intermittent at first but more constant over last 2-3 weeks. no acute trauma. no redness. Pain worse with walking/ weightbearing. no pian at rest. GATITO SWIFT MD [address] [place], [address], [facility] 10/15/2018 09:20:12 05/22/2019 text/html Patient presents for evaluation of a nasal lesion. Onset several months ago. The lesion with scabbing flake off the never fully resolves. Gary Guerra MD [address] [place], [address], [facility] 05/22/2019 15:05:09 11/06/2019 text/html Annual Wellness Exam 18-64 yrReported bypatient.Nutrition 3 meals/day; normal appetite; normal portions; appropriate Calcium intake; good eating habits/appetite Habitsseeing a dentist: regularly; brushes teeth 2 times/day; flosses teeth Exercisegets regular exercise; exercises 2-3 times/week Risk Takingdenies drug use; denies alcohol use; denies tobacco use Moodhappy overall; denies suicidal ideations Safety Measureswears seatbelt; understanding of sun protection; understands conflict resolution/violence prevention Sleep(normal) sleep 53 y/o female presents for annual preventative exam. Hx of hypothyroidism, allergic rhinitis, GERD with erosive esophagitis, and HLD. Taking daily routine meds as listed. Denies physical complaints or concerns. No cp/soa/edema/WYLIE/par esthesia. See age relevant ROS below. Denies further complaints or concerns. Tiffany Hackett NP [address] [place], [address], [facility] 11/07/2019 08:36:12 09/14/2020 text/html Annual Wellness Exam 18-64 yrReported bypatient.Nutrition 3 meals/day; normal appetite; normal portions; appropriate Calcium intake; good eating habits/appetite Habitsseeing a dentist: regularly; brushes teeth 2 times/day; flosses teeth Exercisegets regular exercise; exercises 2-3 times/week Risk Takingdenies drug use; denies alcohol use; denies tobacco use Moodhappy overall; denies suicidal ideations Safety Measureswears seatbelt; understanding of sun protection; understands conflict resolution/violence prevention Sleep(normal) sleep 53 y/o female presents for annual preventative exam. Hx of hypothyroidism, allergic rhinitis, GERD with erosive esophagitis, and HLD. Taking daily routine meds as listed. No cp/soa/edema/WYLIE/par esthesia. Recently, has been having increased fatigue. No recent vitamin level checked. See age relevant ROS below. Denies further complaints or concerns. Tiffany Hackett, DATA ENTRY SUPERVISOR [address] [facility] [place], [address], [facility] 09/15/2020 06:35:41 OBGyn Episode Ob Episode Information Episode Created Date Number of Fetuses Patient Bloodtype Patient rh Status Prepregnancy Weight lbs Domestic Partner Domestic Partner Phone Father Name Sap Sd Analyst Status 11/13/19 13 1 CLOSED Fetus Data First Name Last Name Admitted to NICU Weight (g) Sex Living Outcome Pediatric Complications Fetus ID Race Codes Race Delivery Type 3968.93 M [id number] Maico Calculation Initial Maico Date Initial Exam Date Initial Exam Provider Initial Ultrasound Date Last Menstrual Period Date Ultra Sound Weeks Gestation 0 Eighteen To Twenty Week Maico Update Ultra Sound Date Fundal Height At Umbil Quickening Date Ultra Sound Latest Weeks Gestation Final Maico Confirmed By Final Maico Confirmed Date Final Maico Date Ultra Sound Latest Days Gestation 0 0 Menstrual History Last Menstrual Date Menses Monthly On Bcp Conception Prior Menses Frequency Hcg Plus Date Menarche Onset Age Delivery Information Delivery Date Delivery Type Labor Anesthesia Weeks Gestation Incision Type Labor Labor Length Hrs Delivered By Post Complications Tubal Sterilization Discharge Date Comments 1 41 5 Discharge Information Feeding Method Contraceptive Method Maternal HG B and HCT Levels Ob Episode Information Episode Created Date Number of Fetuses Patient Bloodtype Patient rh Status Prepregnancy Weight lbs Domestic Partner Domestic Partner Phone Father Name Sap Sd Analyst Status 11/13/19 13 1 CLOSED Fetus Data First Name Last Name Admitted to NICU Weight (g) Sex Living Outcome Pediatric Complications Fetus ID Race Codes Race Delivery Type 3687.70 [id number] F [id number] Maico Calculation Initial Maico Date Initial Exam Date Initial Exam Provider Initial Ultrasound Date Last Menstrual Period Date Ultra Sound Weeks Gestation 0 Eighteen To Twenty Week Maico Update Ultra Sound Date Fundal Height At Umbil Quickening Date Ultra Sound Latest Weeks Gestation Final Maico Confirmed By Final Maico Confirmed Date Final Maico Date Ultra Sound Latest Days Gestation 0 0 Menstrual History Last Menstrual Date Menses Monthly On Bcp Conception Prior Menses Frequency Hcg Plus Date Menarche Onset Age Delivery Information Delivery Date Delivery Type Labor Anesthesia Weeks Gestation Incision Type Labor Labor Length Hrs Delivered By Post Complications Tubal Sterilization Discharge Date Comments 9 42 10 Discharge Information Feeding Method Contraceptive Method Maternal HG B and HCT Levels
--- OUTSIDE RECORDS SUMMARY | 2024-10-14 10:17 | XMS_ITS | Encounter Summary ---
Author Organization Healthcare Address [address] [place] [address] Care Team Providers Care Extension Work Instructor Name Role Phone Aby Pantoja APRN Primary Care Provider Jayna Ny Encounter Details Date Type Department Care Team (Late st Contact Info) Description 03/04/2024 Outside Procedure External Location [address] [place] [address] Aby Pantoja APRN [address] [place] [address] Social History Tobacco Use Types Packs/Day Years [...] often do you attend chur ch or evangelical services? Never 02/27/2024 Do you belong to any clubs o r organizations such as hindu groups, unions, fraternal or athletic groups, or [...] Recorded Patient Health Questionnaire-2 Score 0 02/27/2024 [facility] of Occupat ional Health - Occupational Stress [...] any time in the past 12 m [facility], were you homeless or living in a fdc (including now)? No 02/27/2024 Utilities Answer Date Recorded In the past 12 months has [employer], gas, oil, or water company threatened [...] Description 03/11/2025 7:40 AM EST Office Visit [facility] [address] [place] [address] Aby Pantoja, BAKE ROOM WORKER [address] [place] [address] documented as of this encounter Procedures Procedure Name Priority Date/Time Associated Diagnosis Comments MAMMOGRAPHY BREAST SCREENING TOMOSYNTHESIS BILATERAL 03/04/2024 11:09 AM EST documented in this encounter Results * Mammography Breast Screening Tomosynthesis Bilateral (03/04/2024 11:09 AM EST) Anatomical Region Laterality Modality Breast Bilateral Mammography 03/04/2024 11:0 9 AM EST Narrative 03/04/2024 12:10 PM EST [address] [place] [address] Name: MARIAELENA DIA Exam Date: 03/04/2024 : 1965 Age 58 years Gender: F Physician: ABY PANTOJA Facility: [facility] Facility HSV: Outpatient Exam: VANDANA SCRN [...] Electronically signed by:Brandon Antunez MD03/04/2024 12:06 PM [facility] Dictated By: Brandon Antunez Transcribed By: Transcribed On: 03/04/2024 11:39 AM Electronically signed by: Brandon Antunez 03/04/2024 Thank you for referring MARIAELENA DIA to [facility]. Legally authenticated by ALLEN RM 2024-03-04 11:39:48 Procedure Note Provider, Generic [place] - 03/04/[address] [address] Name: MARIAELENA DIA Exam Date: 03/04/2024 : 1965 Age 58 years Gender: F Physician: ABY PANTOJA Facility: [facility] Facility HSV: Outpatient Exam: VANDANA SCRN [...] signed by:Brandon Antunez MD03/04/2024 12:06 PM EST RP Dictated By: Brandon Antunez Transcribed By: Transcribed On: 03/04/2024 11:39 AM Electronically signed by: Brandon Antunez 03/04/2024 [facility]. Legally authenticated by ALLEN RM 2024-03-04 11:39:48 Aby Pantoja APRN IMJuan BI PROCEDURES Final Res ult documented in this encounter Visit Diagnoses Not on filedocumented in this encounter Additional Health Concerns Assessment Noted Time PHQ-9 Depression Total Score: 0 02/27/20 7:48 AM EST A Body Mass Index follow-up plan has been documented for the patient 02/27/2024 10:37 AM EST documented as of this encounter Care Teams Extension Work Instructor Relationship Specialty Start Date End Date Aby Pantoja APRN [address] [place] [phone] PCP - General Family Medicine 02/27/24 Jayna Ny Clinical Belt Tender 04/23/24 06/03/24 documented as of this encounter
--- OUTSIDE RECORDS SUMMARY | 2024-10-14 10:17 | XMS_ITS | Encounter Summary ---
Author Organization [facility] Address [address] [place] [address] Care Team Providers Care Senior Operator Name Role Phone Aby Aguilera TRUCK SPOTTER Primary Care Provider [phone] Reason for Visit * Reason Onset Date Comments Prior-authorization/insurance Verification 08/30 Encounter Details Date Type Department Care Team (Late st Contact Info) Description 08/30/2024 Telephone [facility] Medicine [address] [place] [address] Aby Aguilera, TRUCK SPOTTER [address] [place] [address] Prior-authorization/ins urance Verification Social History Tobacco Use Types Packs/Day Years [...] often do you attend chur ch or uatsdin services? Never 02/27/2024 Do you belong to any clubs o r organizations such as protestant groups, unions, fraternal or athletic groups, or [...] Recorded Patient Health Questionnaire-2 Score 0 02/27/2024 [facility] of Occupat ional Health - Occupational Stress [...] any time in the past 12 m [place], were you homeless or living in a longterm (including now)? No 09/04/2024 Utilities Answer Date Recorded In the past 12 months has th e [employer], gas, oil, or water [employer] threatened to shut off services in your [...] encounter Miscellaneous Notes * Telephone Encounter - Gilda Cerda PharmD - 09/04/2024 10:22 AM EDT Resent prescription(s) to requested pharmacy due to: Insurance restrictions. Insurance prefers 1 tablet/day. Resent prescription as 40mg tablet with same dose and duration. documented in this encounter Plan of Treatment Upcoming Encounters Date Type Department Care Team (Late st Contact Info) Description 03/11/2025 7:40 AM EST Office Visit [facility] [address] [address] Aby Aguilera, TRUCK SPOTTER [address] [place] [address] documented as of this encounter Visit Diagnoses Not on filedocumented in this encounter Additional Health Concerns Assessment Noted Time PHQ-9 Depression Total Score: 0 02/27/20 7:48 AM EST A Body Mass Index follow-up plan has been documented for the patient 02/27/2024 10:37 AM EST documented as of this encounter Care Teams Senior Operator Relationship Specialty Start Date End Date Aby Aguilera, TRUCK SPOTTER [address] [place] [address] PCP - General Family Medicine 02/27/24 documented as of this encounter
--- OUTSIDE RECORDS SUMMARY | 2024-10-14 10:17 | XMS_ITS | Data Portability ---
Author Organization [place] - [facility] - [facility] Address [address] [place] [id number] Assessment Encounter Date Assessment Date Assessment LastModified by Organization Details LastModified Time 12/26/2023 12/26/2023 In summary this is a 58-year-old female who presented to the clinic complaining of sore throat, headache, and fever that began this morning. Patient denies any other symptoms. Please see HPI for further details. Rapid strep performed and was positive. patient stated that she frequently gets a vaginal yeast infection after taking antibiotics and requested a prescription for Diflucan. Prescriptions for azithromycin and Diflucan sent to local pharmacy. Patient advised to increase fluid intake, take all antibiotics and complete prescription as prescribed, take Tylenol/ibuprofe n as needed, discard toothbrush in 48 hours, and follow up with their primary care provider if symptoms persist or worsen. [email or web address] Not available 12/26/2023 11:37:26 Plan of Treatment Reminders Order Date Submit Date Provider Last Modified By Organization Details Last Modified Time Details Appointments None recorded. Lab rapid strep group A, throat [address] [facility], [address], [place], [address], Ph [phone] 4 14:21:12 rapid strep group A, throat 2023 024 [facility], [address], [place], [address], Ph [phone] 12:20:13 Referral None recorded. Procedures None recorded. Surgeries None recorded. Imaging None recorded. Medication Orders azithromyci n 500 mg tablet 2023 024 [facility] 7259 - [facility], [address] [facility] [address], [place], [address], 4 11:35:26 fluconazole 150 mg tablet 2023 024 [facility] 7259 - [facility], [address] [facility] [address], [place], [address], 4 11:35:24 prednisone 20 mg tablet 2022 023 [facility] 591, [address], [address], 3 11:20:51 hydrocortis one 2.5 % topical cream 2022 023 [facility] 591, [address], [address], 3 11:20:49 dexamethaso ne sodium phosphate 10 mg/mL injection solution 2022 023 [email or web address] [facility] 591, [address], [address], 3 14:37:41 Patient TargetsNo targets recorded. Patient Instructions Encounter Date Encounter Id Patient Instructions Last Modified By Organization Details Last Modified Time 08/03/2022 [id number] poison mckay, oak, and sumac: care instructions Not available 08/03/2022 16:05:21 dermatitis: care instructions Not available 08/03/2022 16:05:21 Reason for Referral None Reported. Results Created Date Observation Date Name Description Value Unit Range Abnormal Flag Note LastModifiedBy Organization Detail LastModifiedTime 12/08/19 24 12/08/2023 rapid strep group A, throa t Strep negati ve Not Available [facility] [address], [place], [address], Ph [phone] 12/08/2023 12:02:18 12/26/19 24 12/26/2023 rapid strep group A, throa t Strep positi ve Not Available [facility] [address], [place], [address], Ph [phone] 12/26/2023 11:13:48 Result Notes None recorded. Medical Equipment None Reported. Allergies No known drug allergies Medications Name Sig Start Date Stop Date Status Note LastModified by Organization Details LastModified Time fluconazole 150 mg tablet Take 1 tablet every day by oral route. 2023 active Not Available Not Available Not Avai lable prednisone 20 mg tablet Take 1 tablet every day by oral route for 9 days. 2022 active Not Available Not Available Not Avai lable hydrocortison e 2.5 % topical cream APPLY A THIN LAYER TO THE AFFECTED AREA(S) BY TOPICAL ROUTE 2 TIMES PER DAY 2022 active Not Available Not Available Not Avai lable dexamethasone sodium phosphate 10 mg/mL injection solution Take 10 mg by injection route. 2022 active Not Available Not Available Not Avai lable azithromycin 500 mg tablet Take 1 tablet every day by oral route for 5 days. 2023 active Not Available Not Available Not Avai lable Vitals Date Recorded Body weight Body temperature Provider N kvng and Address Organization Details Last Updated DateTime 08/03/2022 82017.41 g 98.1 [degF] CHAITANYA RODRIGUES [facility] & [place] 08/03/2022 11:04:34 Date Recorded Body weight Body temperature Oxygen saturation Oxygen saturation in Arterial blood by Pulse oximetry Heart rate Systolic And Diastolic Provider Name and Address Organization Details Last Updated DateTime 4 06914.8 g 98.1 [degF] 99 % 99 % 78 /min 170/88 mm[Hg] Nina Bull [facility] & [place] 4 11:57:10 Date Recorded Body weight Body temperature Oxygen saturation Oxygen saturation in Arterial blood by Pulse oximetry Heart rate Systolic And Diastolic Provider Name and Address Organization Details Last Updated DateTime 4 45037.9 1 g 97.7 [degF] 99 % 99 % 87 /min 143/85 mm[Hg] Nina Bull [place] - [facility] & [place] 11:12:40 Social History None recorded. Functional Status None recorded. Mental Status None recorded. Family History Nothing Reported. Medical History No medical history recorded. Gynecological HistoryNo gynecological history recorded. Obstetrics History GPAL:G 0 P 0 0 0 0 Past Encounters Encounter ID Performer Location Encounter Start Date Encounter Closed Date Diagnosis/Indication Diagnosis SNOMED-CT Code Diagnosis ICD10 Code Diagnosis Note [id number] Kala Nash, DNP, SOLE SEWER HAND-C, UNHAIRING MACHINE OPERATOR [facility] [address] [facility] [address] [place] [address] 08/03/2022 10:38:05 08/03/2022 11:22:09 Contact dermatitis 91371152 L25.9 [id number] Toño Slaughter MD [facility] [address] [facility] [address] [place] [address] 12/08/2023 11:19:52 12/08/2023 12:31:18 Pain in throat 858076590 R07.0 Acute pharyngitis 242649 003 J02.9 Sore throat 439877958 J0 2.9 negative so treat symptoms [id number] Aleksandar Duenas PA-C [facility] [address] [facility] [address] [place] [address] 12/26/2023 10:55:23 12/26/2023 11:33:44 Acute streptococcal pharyngitis 8907178093 J02.0 Recurrent candidiasis of vagina 154693254 B37.32 Health Concerns Section Related Observation LastModified by Organization Detai ls LastModified Time None Recorded Concern Status LastModified by Organization Details LastModified Time None Recorded Advance Directives Directive None Recorded Payers Insurance Date Sequence Insurance Name Policy Number Policy Gonsales Covered Member ID Gonsales Member ID Guarantor Name 12/26/2023 1 [employer] (PPO) [id number] Blake Rowland [id number] Mariaelena Rowland 08/03/2022 2 [employer]UCY[employer]LEY (PPO) [id number] Blake Rowland [id number] Mariaelena Rowland Notes Date Note Type Note Provider Name and Address Organization Details Recorded Time 08/03/2022 text/html Per patient she has poison mckay everywhere. Patient says it started on her right leg and it has spread everywhere. Patient says that the rash very itchy. Patient says it is red. Patient is very concerned about her eye. 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 then I had a lot drainage and as the day goes on the right side was bit scratchy. Toño Slaughter MD [address] , [place], [address] [place] [address] & [place] 12/08/2023 12:20:39 12/26/2023 text/html 58-year-old female presents to the clinic complaining of sore throat, headache, and fever that began this morning. Patient denies cough, shortness breath, vomiting, diarrhea, body aches, or any other symptoms. Aleksandar Duenas PA-C [address] , [place], [address], [facility] & [place] 12/26/2023 11:38:02 OBGyn Episode No OBEpisode recorded.
== END 2024-10-11 23:59 | disposition home or self-care (01) ==
LOC: LAB.DROPOF 10-14 10:15
PROVIDERS: PCP Nurse Practitioner; Visit Provider Nurse Practitioner
DX: J02.9 Acute pharyngitis, unspecified (principal); R05.9 Cough, unspecified; R50.9 Fever, unspecified
CPT/HCPCS: 87631